=== PATIENT | female | born 1940 | race Caucasian/White ===

== ENCOUNTER → 2018-10-04 | Outpatient (CLI) | payer MEDICARE ==
--- NOTE | 2018-10-04 13:05 | US ---
EXAMINATION TYPE: US thyroid st tissue head/neck DATE OF EXAM: 10/04/2018 COMPARISON: US 2015 CLINICAL HISTORY: E04.2 Multinodular Goiter. Follow up thyroid nodules, history of thyroid biopsy, pa tient on thyroid meds. GLAND SIZE: Right Lobe: 4.8 x 1.2 x 1.5 cm Overall Parenchyma: heterogenous Left Lobe: 4.1 x 1.4 x 1.4 cm Overall Parenchyma: heterogeneous Isthmus Thickness: 0.3 cm NODULES RIGHT: # of nodules measured on right: 1 1. 1.2 X 0.9 x 1.0 cm hyperechoic solid nodule with small cystic component at the lower pole with w ell-defined margins. This nodule is wider than tall and shows intranodular vascularity. Prior size: no previous LEFT: # of nodules measured on left: 1 1. 1.5 X 1.1 x 1.2 cm hyperechoic solid nodule with small cystic component at the lower pole with w ell-defined margins. This nodule is wider than tall and shows intranodular vascularity. Prior size: 1.7 x 1.6 x 1.3 cm ISTHMUS: # of nodules measured in the isthmus: 0 Bilateral neck scanned, no evidence of lymphadenopathy. IMPRESSION: 1. New hyperechoic solid nodule right thyroid lobe with small cystic component. 2. Left thyroid nodule is slightly smaller in size.
== END | disposition home or self-care (01) ==
LOC: RADUSWWP 12:07
PROVIDERS: ATTEND Internal Medicine Endocrinology, Diabetes & Metabolism
DX: E04.2 Nontoxic multinodular goiter (principal)
CPT/HCPCS: 76536

== ENCOUNTER → 2019-09-19 | Outpatient (CLI) | payer MEDICARE ==
--- NOTE | 2019-09-19 17:21 | US ---
EXAMINATION TYPE: US thyroid st tissue head/neck DATE OF EXAM: 09/19/2019 COMPARISON: US 10/04/18 CLINICAL HISTORY: 79-year-old female E04.2 Multinodular goiter. TECHNIQUE: Multiple sonographic images of the thyroid gland are obtained. FINDINGS: GLAND SIZE: Right Lobe: 4.5 x 1.3 x 1.2 cm Overall Parenchyma: heterogenous Left Lobe: 4.3 x 1.6 x 1.4 cm Overall Parenchyma: heterogeneous Isthmus Thickness: 0.4 cm NODULES RIGHT: # of nodules measured on right: 1 1. 1.3 X 0.9 x 1.0 cm echogenic solid nodule at the lower pole with poorly defined margins. This n odule is taller than wide and shows intranodular vascularity. Prior size: 1.2 x 0.9 x 1.0 cm LEFT: # of nodules measured on left: 1 1. 1.9 X 1.5 x 1.4 cm echogenic solid nodule at the lower pole with poorly defined margins. This n odule is wider than tall and shows intranodular vascularity. Prior size: 1.5 x 1.1 x 1.2 cm ISTHMUS: # of nodules measured in the isthmus: 0 Bilateral neck scanned, no evidence of lymphadenopathy. IMPRESSION: 1. Single dominant nodule on each side. The nodule on the right is relatively stable at 1.3 x 1.0 cm. 2. The nodule on the left has slightly increased in size at 1.9 x 1.5 cm (versus 1.5 x 1.2 cm, previo usly).
== END | disposition home or self-care (01) ==
LOC: RADUSWWP 14:09
PROVIDERS: ATTEND Internal Medicine Endocrinology, Diabetes & Metabolism
DX: E04.2 Nontoxic multinodular goiter (principal)
CPT/HCPCS: 76536

== ENCOUNTER → 2020-08-30 | Day surgery (SDC) | payer MEDICARE ==
[2020-08-24 17:59] VITALS: BMI 33.8
[~2020-08-30] MED LIST: MIDAZOLAM 2 MG/2 ML VIAL IVP ONE; SODIUM CHLORIDE 0.9% 1,000 ML IV SCH; SODIUM CHLORIDE 0.9% 500 ML 500 ML IV ONE; fentaNYL (PF) 50 MCG/ML 2 ML AMP ONE
[2020-08-30 07:09] VITALS: TEMP 98.3
[2020-08-30] MEDS: BENZOCAINE SPRAY 1 CAN MUCOUS MEM ONE ×2 (07:44→07:50)
[2020-08-30] MEDS: fentaNYL (PF) 50 MCG/ML 2 ML AMP IVP ONE ×2 (07:49→07:56)
[2020-08-30 08:02] VITALS: RESP 16
--- NOTE | 2020-08-30 08:20 | P.TEE ---
Indications for Procedure(s): Assessment of aortic stenosis Date of Procedure: 08/30/20 Preoperative Diagnosis: Moderate to severe aortic stenosis Postoperative Diagnosis: Moderate to severe aortic stenosis Procedure(s) Performed: [facility] Description of Procedure(s): INDICATION: Assessment of aortic stenosis CONSENT: Verbal Informed consent was obtained from the patient PROCEDURE: Patient was brought to the lab in a fasting state. She was prepped and draped in the usual fashion. Pt throat was sprayed with Hurricaine. She was given IV Versed 2.5 mg and 37.5 g of fentanyl for sedation. A lubricated Omni probe was introduced in the oropharynx and advanced into the esophagus and stomach. Multiple views were obtained. Color and pulse and continuous-wave Doppler studies were performed. Saline contrast bubble is also performed. Patient tolerated the procedure well. No immediate complications FINDINGS:. The aortic valve appeared to be tricuspid, which is heavily calcified with restrictive opening excursion. The valve area by planimetry appear to be 0.6 2.7 cm. A peak gradient about 48 with a mean of 24 was obtained suggestive of moderate to severe aortic stenosis. There is moderate mitral regurgitation with the Pisa value of 0.7. There is no reversal of flow in the left upper pulmonary vein. There appeared to be a small PFO in the interatrial septum with a [id number] shunt. Saline contrast bubble injection did not reveal any crossing of the bubbles from right to left. Left ventricle function appeared preserved. There appeared to be left atrial enlargement. The aortic arterial free of any significant plaque IMPRESSION: #1. Moderate to severe aortic stenosis. #2. Moderate mitral regurgitation. #3. Left atrial enlargement. #4. Presence of PFO #5. Preserved LV function. #6. Minimal plaque in the aorta PLAN: Continue to monitor her clinically. Possible aortic valve replacement in the near future
[2020-08-30 10:48] VITALS: BP 106/59; PULSE 58
== END | disposition home or self-care (01) ==
LOC: CATHCVL 06:25
PROVIDERS: ATTEND Internal Medicine Cardiovascular Disease
DX: I08.0 Rheumatic disorders of both mitral and aortic valves (principal); Q21.1 Atrial septal defect; I70.0 Atherosclerosis of aorta; E78.2 Mixed hyperlipidemia; I49.9 Cardiac arrhythmia, unspecified; I10 Essential (primary) hypertension; H93.13 Tinnitus, bilateral; Z72.0 Tobacco use; Z79.899 Other long term (current) drug therapy; Z79.82 Long term (current) use of aspirin; Z88.1 Allergy status to other antibiotic agents; Z88.2 Allergy status to sulfonamides; Z82.49 Family history of ischemic heart disease and other diseases of the circulatory system
CPT/HCPCS: 93312; 93320; 93325; J2250; J3010

== ENCOUNTER → 2020-12-24 | Outpatient (CLI) | payer MEDICARE ==
--- NOTE | 2020-12-24 16:04 | US ---
EXAMINATION TYPE: US thyroid st tissue head/neck DATE OF EXAM: 12/24/2020 COMPARISON: 09/19/2019 CLINICAL HISTORY: 80-year-old female E04.2 Nontoxic Multinodular Goiter. Takes thyroid medication TECHNIQUE: Multiple sonographic images of the thyroid gland are obtained. FINDINGS: GLAND SIZE: Right Lobe: 4.6 x 1.7x 1.2 cm Overall Parenchyma: heterogenous Left Lobe: 4.6 x 1.6 x 1.4 cm Overall Parenchyma: heterogeneous Isthmus Thickness: 0.3 cm NODULES RIGHT: # of nodules measured on right: 2 1. 1.2 X 1.0 x 0.8 cm mixed cystic and solid, hyperechoic nodule in inferior pole, which is wider th an tall, with ill-defined margins, without echogenic foci. Prior size: 1.3 x 0.9 x 1.0 cm 2. 0.5 X 0.3 x 0.4 cm benign cyst at the midpole Prior size: not seen LEFT: # of nodules measured on left: 2 1. 1.8 X 1.4 x 1.3 cm mixed cystic and solid, primarily solid isoechoic nodule at the lower pole, w hich is wider than tall, with slightly lobulated margins, without echogenic foci. Prior size: 1.9 x 1.5 x 1.4 cm 2. 0.6 X 0.7 x 0.6 cm cyst with a 3 mm mural based nodule. This is wider than tall, with smooth mar gins, without echogenic foci. Prior size: not seen ISTHMUS: # of nodules measured in the isthmus: 0 Bilateral neck scanned: no evidence of lymphadenopathy. IMPRESSION: 1. Findings suggest multinodular goiter. 2. Dominant solid cystic nodule on the right measures 1.2 cm, not significantly changed from 2019. 3. A dominant 1.8 cm primarily solid nodule on the left is also not significantly changed. 4. A small 7 mm cyst with a 3 mm internal nodule is not clearly seen previously. Follow-up can be con sidered.
== END | disposition home or self-care (01) ==
LOC: RADUSWWP 13:38
PROVIDERS: ATTEND Internal Medicine Endocrinology, Diabetes & Metabolism
DX: E04.2 Nontoxic multinodular goiter (principal)
CPT/HCPCS: 76536

== ENCOUNTER 2021-07-25 06:15 | Day surgery (SDC) | payer MEDICARE ==
[2021-07-22 11:43] VITALS: BMI 33.4
[2021-07-25] MEDS ORDERED: NITROGLYCERIN SL TABS 0.4 MG TAB SUBLINGUAL PRN (06:23)
[2021-07-25] MEDS ORDERED: ALPRAZolam 0.25 MG TAB PO PRN (06:23)
[2021-07-25] MEDS ORDERED: ATORVASTATIN 80 MG TAB PO STA (06:23)
[2021-07-25] MEDS ORDERED: SODIUM CHLORIDE 0.9% 1,000 ML in EMPTY BAG 1 BAG IV ONE (06:23)
[2021-07-25] MEDS ORDERED: ASPIRIN 325 MG TAB PO STA (06:23)
[2021-07-25] MEDS ORDERED: ALPRAZolam 0.5 MG TAB PO PRN (06:23)
[2021-07-25 07:00] VITALS: RESP 16; TEMP 98.1
[2021-07-25] MEDS ORDERED: fentaNYL (PF) 50 MCG/ML 2 ML AMP ONE (07:35)
[2021-07-25] MEDS ORDERED: fentaNYL (PF) 50 MCG/ML 2 ML AMP IV ONE (07:50)
[2021-07-25] MEDS ORDERED: MIDAZOLAM 2 MG/2 ML VIAL IV ONE (07:50)
[2021-07-25] MEDS ORDERED: LIDOCAINE 1% INJ 10MG/ML (20 ML MDV) SQ ONE (07:54)
[2021-07-25] MEDS ORDERED: IOPAMIDOL-370 125ML BTL INJ ONE (08:19)
[2021-07-25 08:21] LABS: O2 Sat Blood Gas 95.1 %
[2021-07-25 08:24] LABS: O2 Sat Blood Gas 74.2 %
[2021-07-25 08:26] LABS: O2 Sat Blood Gas 74.5 %
[2021-07-25] MEDS ORDERED: RX INFO: IV CONTRAST WAS GIVEN 1 EACH MISC MISCELLANE PRN (09:03)
--- NOTE | 2021-07-25 09:11 | P.CARDCATH ---
Date of Procedure: 07/25/21 Preoperative Diagnosis: Aortic stenosis, critical Postoperative Diagnosis: Moderate to severe aortic stenosis Procedure(s) Performed: Left heart catheterization, selective coronary arteriography and right heart catheterization. No LV gram Description of Procedure: HISTORY: This is a 81-year-old female with history of nontraumatic aortic stenosis. Recent echocardiogram was size to of severe aortic stenosis. Patient doesn't have any symptoms of chest pain, shortness of breath, dizziness or syncope. She had a previous a [facility] examination which was suggestive of moderate to severe aortic stenosis. Patient is advised to have a cardiac catheterization for definitive diagnosis and further intervention as needed CONSENT:I have discussed the risks, benefits and alternative therapies for the above-mentioned procedure and for both sedation/analgesia as well as necessary blood product administration, if indicated, as they pertain to this patient. The patient has indicated understanding and acceptance of the risks and proc edures discussed. PROCEDURE: Patient was brought to the lab in a fasting state. Patient was given some IV sedation. Right heart catheterization: This was done from the right femoral approach. The right groin is infiltrated with lidocaine. Right femoral vein was entered and the 8-Somali sheath was left in place. The right groin is infiltrated with lidocaine and right femoral artery was entered using Seldinger technique. A 7- Somali [place]ingham-Umm catheter was advanced through the sheath and right heart catheterization was performed. Patient tolerated the procedure well. Manual compression was applied for hemostasis at the end of the procedure. Left heart catheterization: The right femoral artery was entered using Seldinger technique. A 6-Somali catheter was left in place and selective coronary arteriography and left ventriculography was performed. Patient tolerated the procedure well. Femoral angiogram was performed and Angio-Seal was applied for hemostasis. No immediate complications were noted and patient was transferred to [facility] in a stable condition Conscious Sedation: Versed 1mg Fentanyl 50 g Duration 31minutes HEMODYNAMICS: The aortic pressure is about 110/70. The left ventricle end- diastolic pressure 8-10. The right atrial pressure was 3. Right ventricular pressure was 25 over 3. Pulmonary artery pressure was 25/8. Pulmonary wedge pressure was 8. The cardiac output by thermodilution method was 4.86 and by Alyssa method is 6.99. A peak gradient of 30 was obtained across the aortic valve with a mean of about 25. The valve area is about 1-1.2. SELECTIVE CORONARY ARTERIOGRAPHY: LEFT MAIN: Normal length and free of occlusive disease THE LEFT ANTERIOR DESCENDING CORONARY ARTERY:. Fairly caliber vessel free of any occlusive disease. Gives rise to good-sized 2 diagonal branches and septal branches which are free of occlusive disease THE LEFT CIRCUMFLEX AND IS CORONARY ARTERY:. This is a good caliber vessel giving rise to good-sized OM branch and PLV branch. Free of occlusive disease THE RIGHT CORONARY ARTERY:. Dominant vessel giving rise to good-sized PDA and PLV. Free of occlusive disease LEFT VENTRICULOGRAPHY:. Not performed FINAL IMPRESSION:. Noncritical aortic stenosis. Normal coronary arteries PLAN:. Continue medical therapy and monitor with serial echocardiogram PROGNOSIS: Fair
[2021-07-25] MEDS ORDERED: SODIUM CHLORIDE 0.9% 1,000 ML IV SCH (09:15)
[2021-07-25 10:52] VITALS: BP 124/84; PULSE 60
== END 2021-07-25 12:50 | disposition home or self-care (01) ==
LOC: CATHCVL 06:15
PROVIDERS: ATTEND Internal Medicine Cardiovascular Disease
DX: I35.0 Nonrheumatic aortic (valve) stenosis (principal); I10 Essential (primary) hypertension; E78.5 Hyperlipidemia, unspecified; F17.210 Nicotine dependence, cigarettes, uncomplicated; Z79.82 Long term (current) use of aspirin; Z82.49 Family history of ischemic heart disease and other diseases of the circulatory system
CPT/HCPCS: 93460; 85018; 82810; C1760; C1769 ×3; C1894 ×2; J2250; J2001; J3010; Q9967

== ENCOUNTER 2022-01-16 04:31 | Emergency (ER) | payer MEDICARE ==
[2022-01-16 05:04] VITALS: BP 156/72; TEMP 98
--- NOTE | 2022-01-16 05:16 | ED ---
SOB HPI - General Chief Complaint: Shortness of Breath Stated Complaint: SOB, chest pain Time Seen by Provider: 01/16/22 05:02 Source: patient Mode of arrival: EMS Limitations: no limitations - History of Present Illness Initial Comments: This patient is a 81-year-old woman who presents with complaint that she feels unable to draw a "satisfying breath." This it come on tonight. She states that there is a feeling that it is tight in the lower chest bilaterally. She did not have fever or chills, cough, diaphoresis or other symptoms. MD Complaint: shortness of breath -: hour(s) Severity scale (1-10): 0 Consistency: constant Improves With: nothing Worsens With: nothing Associated Symptoms: denies other symptoms - Related Data Home Medications Medication Instructions Recorded Confirmed Aspirin 81 mg PO HS 06/15/14 01/16/22 Atorvastatin [Lipitor] 10 mg PO HS 06/15/14 01/16/22 gemfibroziL [Lopid] 600 mg PO DAILY 06/15/14 01/16/22 Albuterol Inhaler [Ventolin Hfa 2 puff INHALATION RT-Q6H PRN 08/24/20 01/16/22 Inhaler] Calcium Carbonate [Calcium] 600 mg PO DAILY 08/24/20 01/16/22 Cholecalciferol [Vitamin D3 (25 1,000 unit PO DAILY 08/24/20 01/16/22 Mcg = 1000 Iu)] Losartan [Cozaar] 50 mg PO DAILY 08/24/20 01/16/22 Perry-3 Fatty Acids/Fish Oil [Fish 1 cap PO DAILY 08/24/20 01/16/22 Oil 1,000 mg Softgel] hydroCHLOROthiazide 25 mg PO DAILY 08/24/20 01/16/22 methIMAzole [Tapazole] 2.5 mg PO HS 08/24/20 01/16/22 Vit C/E/Zn/Coppr/Lutein/Zeaxan 1 cap PO DAILY 07/22/21 01/16/22 [Preservision Areds 2 Softgel] Aspirin EC [Ecotrin] 325 mg SL ONCE PRN 01/16/22 01/16/22 Allergies Allergy/AdvReac Type Severity Reaction Status Date / Time cephalexin monohydrate Allergy Rash/Hives Verified 01/16/22 06:24 [From Keflex] Sulfa (Sulfonamide Allergy Rash/Hives Verified 01/16/22 06:24 Antibiotics) Review of Systems ROS Statement: Those systems with pertinent positive or pertinent negative responses have been documented in the HPI. ROS Other: All systems not noted in ROS Statement are negative. Constitutional: Denies: fever, chills, weakness Respiratory: Reports: as per HPI, dyspnea. Denies: cough, wheezes, hemoptysis Cardiovascular: Denies: chest pain, palpitations, orthopnea, edema, syncope Gastrointestinal: Denies: abdominal pain, vomiting, diarrhea, melena, hematochezia Genitourinary: Denies: dysuria, hematuria Musculoskeletal: Denies: back pain Skin: Denies: rash Neurological: Denies: headache Past Medical History Past Medical History: Cancer, Hyperlipidemia, Hypertension, Skin Disorder, Thyroid Disorder Additional Past Medical History / Comment(s): HX SKIN CANCER DX, see Dr Harris H&P, "indigestion", "patch on scalp", hyperthyroid, History of Any Multi-Drug Resistant Organisms: None Reported Past Surgical History: Tonsillectomy, Tubal Ligation Additional Past Surgical History / Comment(s): MULT SKIN CANCER LESIONS REMOVED, BILAT CATARACTS REMOVED Past Anesthesia/Blood Transfusion Reactions: No Reported Reaction Past Psychological History: No Psychological Hx Reported Smoking Status: Former smoker - Past Family History Mother Family Medical History: Cancer Additional Family Medical History / Comment(s): breast cancer Father Family Medical History: Cancer General Exam Limitations: no limitations General appearance: alert, in no apparent distress Head exam: Present: atraumatic, normocephalic Eye exam: Present: normal appearance. Absent: scleral icterus, conjunctival injection ENT exam: Present: normal oropharynx Neck exam: Present: normal inspection Respiratory exam: Present: normal lung sounds bilaterally. Absent: respiratory distress, wheezes, rales, rhonchi, stridor, chest wall tenderness, accessory muscle use Cardiovascular Exam: Present: regular rate, normal rhythm, systolic murmur (Grade 3/6 systolic ejection murmur). Absent: diastolic murmur, rubs, gallop GI/Abdominal exam: Present: soft. Absent: distended, tenderness, guarding, rebound, rigid, mass Extremities exam: Present: normal inspection, normal capillary refill. Absent: pedal edema, calf tenderness Back exam: Present: normal inspection. Absent: CVA tenderness (R), CVA tenderness (L) Neurological exam: Present: alert Skin exam: Present: warm, dry, intact, normal color. Absent: rash Course Vital Signs 01/16/22 04:55 Temperature 98 F Pulse Rate 80 Respiratory 19 Rate Blood Pressure 156/72 O2 Sat by Pulse 98 Oximetry Medical Decision Making - Lab Data Result diagrams: 01/16/22 05:16 01/16/22 05:16 Lab Results 01/16/22 01/16/22 01/16/22 Range/Units 05:16 05:16 05:16 WBC 11.8 H (3.8-10.6) k/uL RBC 4.30 (3.80-5.40) m/uL Hgb 12.8 (11.4-16.0) gm/dL Hct 37.5 (34.0-46.0) % MCV 87.2 (80.0-100.0) fL MCH 29.8 (25.0-35.0) pg MCHC 34.1 (31.0-37.0) g/dL RDW 13.6 (11.5-15.5) % Plt Count 317 (150-450) k/uL MPV 8.0 Neutrophils % 81 % Lymphocytes % 10 % Monocytes % 5 % Eosinophils % 1 % Basophils % 0 % Neutrophils # 9.6 H (1.3-7.7) k/uL Lymphocytes # 1.2 (1.0-4.8) k/uL Monocytes # 0.6 (0-1.0) k/uL Eosinophils # 0.2 (0-0.7) k/uL Basophils # 0.0 (0-0.2) k/uL PT 10.5 (9.0-12.0) sec INR 1.0 (<1.2) APTT 22.9 (22.0-30.0) sec D-Dimer 0.71 H (<0.60) mg/L FEU Sodium 131 L (137-145) mmol/L Potassium 3.6 (3.5-5.1) mmol/L Chloride 98 (98-107) mmol/L Carbon Dioxide 23 (22-30) mmol/L Anion Gap 10 mmol/L BUN 14 (7-17) mg/dL Creatinine 0.48 L (0.52-1.04) mg/dL Est GFR (CKD-EPI)AfAm >90 (>60 ml/min/1.73 sqM) Est GFR (CKD-EPI)NonAf >90 (>60 ml/min/1.73 sqM) Glucose 153 H (74-99) mg/dL Plasma Lactic Acid Martir (0.7-2.0) mmol/L Calcium 9.3 (8.4-10.2) mg/dL Total Bilirubin 1.4 H (0.2-1.3) mg/dL AST 60 H (14-36) U/L ALT 70 H (4-34) U/L Alkaline Phosphatase 188 H (38-126) U/L Troponin I (0.000-0.034) ng/mL NT-Pro-B Natriuret Pep pg/mL Total Protein 6.7 (6.3-8.2) g/dL Albumin 3.7 (3.5-5.0) g/dL 01/16/22 01/16/22 01/16/22 Range/Units 05:16 05:16 05:37 WBC (3.8-10.6) k/uL RBC (3.80-5.40) m/uL Hgb (11.4-16.0) gm/dL Hct (34.0-46.0) % MCV (80.0-100.0) fL MCH (25.0-35.0) pg MCHC (31.0-37.0) g/dL RDW (11.5-15.5) % Plt Count (150-450) k/uL MPV Neutrophils % % Lymphocytes % % Monocytes % % Eosinophils % % Basophils % % Neutrophils # (1.3-7.7) k/uL Lymphocytes # (1.0-4.8) k/uL Monocytes # (0-1.0) k/uL Eosinophils # (0-0.7) k/uL Basophils # (0-0.2) k/uL PT (9.0-12.0) sec INR (<1.2) APTT (22.0-30.0) sec D-Dimer (<0.60) mg/L FEU Sodium (137-145) mmol/L Potassium (3.5-5.1) mmol/L Chloride (98-107) mmol/L Carbon Dioxide (22-30) mmol/L Anion Gap mmol/L BUN (7-17) mg/dL Creatinine (0.52-1.04) mg/dL Est GFR (CKD-EPI)AfAm (>60 ml/min/1.73 sqM) Est GFR (CKD-EPI)NonAf (>60 ml/min/1.73 sqM) Glucose (74-99) mg/dL Plasma Lactic Acid Martir 1.3 (0.7-2.0) mmol/L Calcium (8.4-10.2) mg/dL Total Bilirubin (0.2-1.3) mg/dL AST (14-36) U/L ALT (4-34) U/L Alkaline Phosphatase (38-126) U/L Troponin I <0.012 (0.000-0.034) ng/mL NT-Pro-B Natriuret Pep 148 pg/mL Total Protein (6.3-8.2) g/dL Albumin (3.5-5.0) g/dL - EKG Data -: EKG Interpreted by Me EKG shows normal: sinus rhythm, axis, intervals (Normal), QRS complexes (Possible old inferior infarct.), ST-T waves (Normal) Rate: normal (Rate 74 bpm) Interpretation: LVH (By voltage criteria) Disposition Clinical Impression: Dyspnea Disposition: HOME SELF-CARE Condition: Good Instructions (If sedation given, give patient instructions): Dyspnea (ED) Is patient prescribed a controlled substance at d/c from ED?: No Referrals: Ashley Navarrete MD [Primary Care Provider] - 1-2 days
[2022-01-16 05:25] LABS: Basophils % (A) 0 %; Eosinophils # (A) 0.2 k/uL (0-0.7); Eosinophils % (A) 1 %; HCT 37.5 % (34.0-46.0); HGB 12.8 gm/dL (11.4-16.0); Lymphocytes # (A) 1.2 k/uL (1.0-4.8); Lymphocytes % (A) 10 %; MCH 29.8 pg (25.0-35.0); MCHC 34.1 g/dL (31.0-37.0); MCV 87.2 fL (80.0-100.0); Monocytes # (A) 0.6 k/uL (0-1.0); Monocytes % (A) 5 %; Neutrophils # (A) 9.6 k/uL (1.3-7.7); Neutrophils % (A) 81 %; Platelet Count 317 k/uL (150-450); RDW 13.6 % (11.5-15.5); WBC 11.8 k/uL (3.8-10.6)
[2022-01-16 05:37] LABS: ALT 70 U/L (4-34); AST 60 U/L (14-36); African American GFR (CKD) >90 (>60 ml/min/1.73 sqM); Albumin 3.7 g/dL (3.5-5.0); Alkaline Phosphatase 188 U/L (38-126); Anion Gap 10 mmol/L; Blood Urea Nitrogen 14 mg/dL (7-17); Calcium 9.3 mg/dL (8.4-10.2); Carbon Dioxide 23 mmol/L (22-30); Chloride 98 mmol/L (98-107); Glucose 153 mg/dL (74-99); Non-African American GFR(CKD) >90 (>60 ml/min/1.73 sqM); Potassium 3.6 mmol/L (3.5-5.1); Sodium 131 mmol/L (137-145); Total Bilirubin 1.4 mg/dL (0.2-1.3); Total Protein 6.7 g/dL (6.3-8.2)
[2022-01-16 05:42] LABS: Partial Thromboplastin Time 22.9 sec (22.0-30.0); Prothrombin Time 10.5 sec (9.0-12.0)
--- NOTE | 2022-01-16 05:48 | XR ---
EXAMINATION TYPE: XR chest 2V DATE OF EXAM: 01/16/2022 COMPARISON: NONE HISTORY: Short of breath TECHNIQUE: 2 view FINDINGS: Heart is enlarged. There is no heart failure. Lungs are clear of consolidation. There are n o hilar masses. There are chest leads. IMPRESSION: No active cardiopulmonary disease.
[2022-01-16] MEDS ORDERED: ALBUTEROL NEBULIZED 2.5 MG/3 ML INHALATION STA (07:15)
[2022-01-16 08:11] VITALS: RESP 16
[2022-01-16 08:23] VITALS: PULSE 72
== END 2022-01-16 08:23 | disposition home or self-care (01) ==
LOC: EC 04:31
DX: R06.02 Shortness of breath (principal); E78.5 Hyperlipidemia, unspecified; I10 Essential (primary) hypertension; E07.9 Disorder of thyroid, unspecified; Z79.82 Long term (current) use of aspirin; Z88.2 Allergy status to sulfonamides; Z85.828 Personal history of other malignant neoplasm of skin; Z98.51 Tubal ligation status; Z87.891 Personal history of nicotine dependence
CPT/HCPCS: 36415; 71046; 80053; 83605; 83880; 84484; 85025; 85379; 85610; 85730; 93005; 94640; 99285

== ENCOUNTER → 2022-04-02 | Outpatient (CLI) | payer MEDICARE ==
--- NOTE | 2022-04-02 19:39 | US ---
EXAMINATION TYPE: US thyroid st tissue head/neck DATE OF EXAM: 04/02/2022 COMPARISON: US CLINICAL HISTORY: E04.2 goiter. Hx biopsy a few years ago. Goiter. GLAND SIZE: Right Lobe: 4.5 x 1.8 x 1.4 cm Overall Parenchyma: heterogenous Left Lobe: 4.9 x 1.8 x 1.6 cm Overall Parenchyma: heterogeneous Isthmus Thickness: 0.29 cm NODULES RIGHT: # of nodules measured on right: 4 1. 0.5 X 0.4 x 0.5 cm, mid lateral, mixed cystic and solid, hypoechoic nodule, which is taller than wide, with smooth margins, with echogenic focus. Prior size: 0.5 x 0.3 x 0.4 cm 2. ??Nodule versus possible parathyroid tissue 1.0 X 0.5 x 0.4 cm, mid lateral, hypoechoic nodule, which is wider than tall, with ill-defined margins, without echogenic foci. Prior size: Does not correlate 3. 1.5 X 1.4 x 0.9 cm, lower medial, mixed cystic and solid, isoechoic nodule, which is wider than tall, with smooth margins, with echogenic foci. TR 4 Prior size: 1.2 x 1.0 x 0.8 cm *hypoechoic borders. 4. 0.6 X 0.5 x 0.3 cm, mid mid, hypoechoic nodule, which is wider than tall, with smooth margins, w ith echogenic focus. Prior size: Does not correlate LEFT: # of nodules measured on left: 2 1. 2.3 X 1.6 x 1.3 cm, lower lateral, mixed cystic and solid, isoechoic nodule, which is wider than tall, with ill-defined margins, with echogenic foci. TR 2 Prior size: 1.8 x 1.4 x 1.3 cm 2. 0.8 X 0.7 x 0.5 cm, upper mid, solid or almost completely solid, isoechoic nodule, which is wid er than tall, with ill-defined margins, without echogenic foci. Prior size: Does not correlate ISTHMUS: # of nodules measured in the isthmus: 0 Bilateral neck scanned, no evidence of lymphadenopathy. IMPRESSION: 1. Mildly suspicious nodule right lobe thyroid. This has increased in size from the comparison. If th is is not been biopsied, fine-needle aspiration would be recommended. 2017 ACR TI-RADS LEVEL: TR-RADS 4 - Moderately Suspicious: Follow if > 1 cm, FNA if > 1.5 cm *Highest TI-RADS level nodule reported
== END | disposition home or self-care (01) ==
LOC: RADUSWWP 13:26
PROVIDERS: ATTEND Internal Medicine Endocrinology, Diabetes & Metabolism
DX: E04.2 Nontoxic multinodular goiter (principal)
CPT/HCPCS: 76536

== ENCOUNTER 2022-09-09 12:49 | Day surgery (SDC) | payer MEDICARE ==
[2022-09-09 13:29] VITALS: TEMP 98
--- NOTE | 2022-09-09 14:20 | US ---
ULTRASOUND GUIDED FNA THYROID BIOPSY: CLINICAL HISTORY: Right thyroid nodule FINDINGS: The procedure was explained to the patient. The risks, complications, benefits and alternatives were discussed and any questions were answered. Informed consent was obtained. Patient was placed supin e on the ultrasound table and prepped and draped in the usual sterile fashion. Utilizing a 25 gauge needle, five passes were made into the requested right thyroid nodule. Patient was stable throughout the procedure. Pathology is pending. All elements of maximal barrier technique were utilized. IMPRESSION: 1. Successful ultrasound guided FNA thyroid biopsy.
[2022-09-09 14:31] VITALS: BP 147/79; PULSE 94; RESP 16
== END 2022-09-09 14:25 | disposition home or self-care (01) ==
LOC: RADPROMAIN 12:49
PROVIDERS: ATTEND Internal Medicine Endocrinology, Diabetes & Metabolism
DX: E04.1 Nontoxic single thyroid nodule (principal)
CPT/HCPCS: 10005; 88173; 88305

== ENCOUNTER → 2023-08-13 | Outpatient (CLI) | payer MEDICARE ==
--- NOTE | 2023-08-13 19:41 | US ---
EXAMINATION TYPE: US thyroid st tissue head/neck DATE OF EXAM: 08/13/2023 COMPARISON: US 2021 CLINICAL INDICATION: Female, 83 years old with history of E04.2 nontoxic multinodular goiter; GLAND SIZE: Right Lobe: 4.9 x 1.3 x 1.9 cm Overall Parenchyma: heterogenous Left Lobe: 4.3 x 1.5 x 1.8 cm Overall Parenchyma: heterogenous Isthmus Thickness: 0.3 cm NODULES RIGHT: # of nodules measured on right: 1 1. 1.2 X 0.9 x 1.1 cm, lower mid, solid or almost completely solid, isoechoic TR 3 nodule, which is wider than tall, with ill-defined margins, without echogenic foci. Prior size: 1.5 x 0.9 x 1.4 cm LEFT: # of nodules measured on left: 1 1. 1.5 X 1.0 x 1.3 cm, mid, solid or almost completely solid, isoechoic TR 3 nodule, which is wider than tall, with ill-defined margins, without echogenic foci. Prior size: 2.3 x 1.3 x 1.6 cm ISTHMUS: # of nodules measured in the isthmus: 0 Bilateral neck scanned, no evidence of lymphadenopathy. IMPRESSION: A TR 3 nodule on either side decreasing in size from prior exam, now measuring up to 1.5 cm on the le ft and 1.2 cm on the right.
== END | disposition home or self-care (01) ==
LOC: RADUSWWP 14:46
PROVIDERS: ATTEND Internal Medicine Endocrinology, Diabetes & Metabolism
DX: E04.2 Nontoxic multinodular goiter (principal)
CPT/HCPCS: 76536

== ENCOUNTER → 2024-07-08 | Outpatient (CLI) | payer MEDICARE | END | disposition home or self-care (01) | LOC: LABPRL 11:35 | PROVIDERS: ATTEND Internal Medicine Interventional Cardiology | CPT/HCPCS: 80048; 83880 ==

== ENCOUNTER 2024-07-21 08:29 | Day surgery (SDC) | payer MEDICARE ==
[2024-07-01] MEDS: IOPAMIDOL-370 100ML BTL INJ ONE (11:39)
[2024-07-21] MEDS ORDERED: LIDOCAINE 1% INJ 10MG/ML (20 ML MDV) ONE (09:10)
[2024-07-21] MEDS ORDERED: VERAPAMIL 2.5 MG/ML 2 ML AMP ONE (09:10)
[2024-07-21] MEDS ORDERED: fentaNYL (PF) 50 MCG/ML 2 ML AMP ONE (10:02)
[2024-07-21] MEDS ORDERED: HEPARIN SODIUM 1,000 UN/ML (10ML VL) ONE (10:03)
[2024-07-21] MEDS ORDERED: MIDAZOLAM 2 MG/2 ML VIAL ONE (10:03)
[2024-07-21] MEDS ORDERED: BENZOCAINE SPRAY 1 EACH MM ONE (10:15)
[2024-07-21] MEDS ORDERED: SODIUM CHLORIDE 0.9% 1,000 ML BAG ONE ×2 (10:15→10:40)
[2024-07-21] MEDS ORDERED: SODIUM CHLORIDE 0.9% 250 ML BAG ONE (10:40)
[2024-07-21] MEDS ORDERED: HEPARIN SODIUM,PORCINE 5,000 UNIT/ML 1 ML VIAL ONE (10:40)
[2024-07-21] MEDS ORDERED: HEPARIN SODIUM,PORCINE 10,000 UNIT/ML 1 ML VIAL ONE (10:40)
--- NOTE | 2024-08-26 09:46 | CC ---
CARDIAC CATHETERIZATION REPORT Ms. Mclain is an 84-year-old female with a known history of hypertension, hyperlipidemia as well as history of aortic stenosis, who had evidence of progression of gradient, and she has been complaining of progressive dyspnea. In view of that, recommendation was made regarding cardiac catheterization. The procedure as well as risks and complications were discussed with the patient, who is in full understanding and agreement. PROCEDURE DESCRIPTION: The patient was brought to cath lab technologist in a fasting, semi-sedated state. After receiving fentanyl and Benadryl and achieving moderate conscious sedated state, a 6-Fijian sheath was introduced in the right radial artery. Subsequently, the venous sheath and the right basilic vein were exchanged to a 6-Fijian sheath. Right heart catheterization was performed using [place]-Umm catheter. Multiple samples were obtained. Cardiac output by thermodilution was calculated. Selective right and left coronary angiography was performed using 5-Fijian 3.5 bend right Karma and a 4 bend left Karma catheter. Multiple views of the coronary artery including jake-axial views were obtained. The right Karma was used to cross the aortic valve, and pressures were obtained. Following that, catheter and sheath were removed. Hemostasis was obtained with deployment of a TR band. There was no hand compression of the right brachial area. There was no immediate complication. The patient was returned to room in stable condition. Of note, the patient received 4500 units of intravenous heparin as well as intra-arterial verapamil. HEMODYNAMICS: Right atrial saturation 71%, pulmonary artery saturation 74%, arterial saturation 99%. Cardiac output by Alyssa 5.0 L/minute with an index of 2.9 L/minute per sq m. Cardiac output by thermodilution of 4.6 L/minute with an index of 2.7 L/minute per sq m. Left ventricular end-diastolic pressure of 14 to 16 mmHg. Pulmonary artery systolic of 30, diastolic of 8 with a mean of 18 mmHg. Pulmonary capillary wedge pressure: A-wave of 18, V-wave of 20 with a mean of 12 mmHg. Right ventricular systolic of 30 with an end- diastolic of 9 mmHg. Right atrium: A-wave of 7, V-wave of 5 with a mean of 5 mmHg. Left ventricular systolic pressure of 185 mmHg with an ascending aorta of 125 mmHg with a peak gradient of 60 mmHg and aortic valve area measured at 0.6 sq cm. CORONARIES: Left main: This is a large-sized vessel bifurcating into left circumflex, left anterior descending artery. Left main coronary artery has no evidence of significant obstructive disease. Left anterior descending artery: This is a large-sized vessel reaching to the apex giving rise to a diagonal branch. The left anterior descending artery as well as branches have no evidence of obstructive coronary disease. The first septal distributor sales consultant is large in caliber and is parallel to the LAD in segment of it. Left circumflex: This is a large nondominant vessel giving rise to 2 large obtuse marginal branches that have no obstructive disease. Right coronary artery: This is a large dominant vessel bifurcating distally to PDA and posterolateral segment branches. The right coronary artery and its branches have no evidence of obstructive coronary artery disease. Fluoroscopy: There is severe calcification of the aortic valve as well as severe mitral anulus calcification. CONCLUSION: 1. Normal coronary arteries. 2. Severe aortic stenosis with a valve area 0.6 sq cm. 3. Right dominance. 4. Severe mitral anulus calcification. RECOMMENDATIONS: In view of findings and anatomy, I recommend proceeding with evaluation for aortic valve replacement by TAVR. Those findings and recommendations were discussed with the patient and her family, and they are in full understanding and agreement. Duration of sedation is 54 minutes. MMODL / IJN: [id number] /
--- NOTE | 2024-08-26 09:49 | ECHOT ---
TRANSESOPHAGEAL ECHOCARDIOGRAM INDICATION: Evaluation of aortic graft. PROCEDURE: After explaining the procedure to the patient, its risks and the complications, her blood pressure, heart rate, O2 saturation were monitored. The throat was sprayed with Cetacaine. She received 2 mg of intravenous Versed and 50 mcg intravenous fentanyl. The probe was introduced in esophagus without difficulties. Images were obtained. Following that, the probe was removed. There was no immediate complication. FINDINGS: Left atrial size is upper size of normal. Left atrial appendage is normal. Left ventricular size and systolic function normal. The mitral valve revealed mitral anulus calcification. The tricuspid valve appears to be normal. Pulmonic valve is normal. The aortic valve is a tricuspid valve with severe calcification and reduced opening. Descending thoracic aorta appears to be normal. No pericardial effusion was noted. Contrast bubble study revealed no shunting across the interatrial septum. Doppler pulse wave and color Doppler obtained and revealed a moderate mitral and tricuspid regurgitation with mild pulmonary hypertension. There was mild aortic regurgitation. The peak gradient across the aortic valve was 71 mmHg with a mean of 35 mmHg. There was no shunting by color Doppler study. CONCLUSION: 1. Normal left ventricular size and systolic function. 2. Severe aortic stenosis with a mean gradient of 35 mmHg and mild aortic regurgitation. 3. Moderate mitral and tricuspid regurgitation with mild pulmonary hypertension. 4. No pericardial effusion. 5. No shunting across the interatrial septum. MMODL / IJN: [id number] /
== END 2024-07-21 15:34 | disposition home or self-care (01) ==
LOC: CATHCVL 08:29
PROVIDERS: ATTEND Internal Medicine Interventional Cardiology
DX: R94.39 Abnormal result of other cardiovascular function study
CPT/HCPCS: 93312; 93320; 93325; 93460

== ENCOUNTER → 2024-08-04 | Outpatient (CLI) | payer MEDICARE ==
[2024-08-04 09:50] LABS: Basophils # (A) 0.1 k/uL (0-0.2); Basophils % (A) 1 %; Eosinophils # (A) 0.3 k/uL (0-0.7); Eosinophils % (A) 6 %; HCT 41.5 % (34.0-46.0); HGB 13.9 gm/dL (11.4-16.0); Lymphocytes # (A) 1.6 k/uL (1.0-4.8); Lymphocytes % (A) 28 %; MCH 29.4 pg (25.0-35.0); MCHC 33.4 g/dL (31.0-37.0); Monocytes # (A) 0.3 k/uL (0-1.0); Monocytes % (A) 5 %; Neutrophils # (A) 3.3 k/uL (1.3-7.7); Neutrophils % (A) 58 %; Platelet Count 302 k/uL (150-450); RBC 4.72 m/uL (3.80-5.40); RDW 13.3 % (11.5-15.5); WBC 5.6 k/uL (3.8-10.6)
[2024-08-04 09:51] LABS: Appearance,Urine Clear (Clear); Bilirubin,Urine Negative (Negative); Blood,Urine Negative (Negative); Color,Urine Colorless; Glucose,Urine (UA) Negative (Negative); Ketones,Urine Negative (Negative); Leukocyte Esterase,Urine Negative (Negative); Nitrite,Urine Negative (Negative); PH, Urine 6.5 (5.0-8.0); Protein,Urine Negative (Negative); Specific Gravity,Urine 1.015 (1.001-1.035); Urobilinogen,Urine <2.0 mg/dL (<2.0)
[2024-08-04 10:14] LABS: ALT 16 U/L (4-34); AST 25 U/L (14-36); African American GFR (CKD) >90 (>60 ml/min/1.73 sqM); Albumin 4.5 g/dL (3.5-5.0); Albumin/Globulin Ratio 1.7; Alkaline Phosphatase 89 U/L (38-126); Anion Gap 6 mmol/L; Bilirubin,Unconjugated 0.7 mg/dL (0.0-1.1); Blood Urea Nitrogen 12 mg/dL (7-17); Calcium 9.7 mg/dL (8.4-10.2); Carbon Dioxide 29 mmol/L (22-30); Chloride 98 mmol/L (98-107); Globulin 2.7 g/dL; Glucose 102 mg/dL (74-99); Magnesium 1.9 mg/dL (1.6-2.3); Non-African American GFR(CKD) 88 (>60 ml/min/1.73 sqM); Sodium 133 mmol/L (137-145); Total Bilirubin 0.8 mg/dL (0.2-1.3); Total Protein 7.2 g/dL (6.3-8.2)
[2024-08-04 10:21] LABS: NT-Pro-B-Type Natriuretic Pept 384 pg/mL
--- NOTE | 2024-08-04 12:19 | CT ---
EXAMINATION TYPE: CT TAVR Planning DATE OF EXAM: 08/04/2024 HISTORY: Pre TAVR CT DLP: 2144.9 mGycm Automated Exposure Control for Dose Reduction was Utilized. CONTRAST: CT scan of the chest, abdomen and pelvis is performed without and with IV Contrast, patient injected with 125 mL of Isovue 370. COMPARISON: None TECHNIQUE: Helical imaging obtained through the chest, abdomen and pelvis during arterial phase jaylen karen administration of radiographic contrast intravenously. FINDINGS: See report from [employer] regarding preprocedural planning CHEST: Lower Neck and Thyroid: There is a left thyroid nodule, correlate with thyroid ultrasound. There is a 17 mm well-circumscribed subcutaneous nodule overlying the left shoulder. Correlate with ultrasound and possible fine needle aspiration. Lungs: No significant findings Central Airway: No significant findings Pleura: No significant findings Pulmonary Arteries: No significant findings Heart and Pericardium: No significant findings Lymph Nodes: No significant findings Mediastinum & Esophagus: No significant findings AV Calcification Severity: Mild to moderate ABDOMEN/PELVIS: Please note arterial phase of the imaging limits detailed evaluation of the solid abdominal organs. Liver: No significant findings Spleen: No significant findings Kidneys: No significant findings Adrenal Glands: No significant findings Pancreas: No significant findings Gallbladder: Multiple gallstones. Bowel and Mesentery: No significant findings Lymph Nodes: No significant findings Urinary Bladder: No significant findings Pelvic Organs: Densely calcified uterine fibroid. Fluid within the endometrial cavity and pelvic ultr asound is recommended for further evaluation. Fluid within the uterine cavity in a patient of this ag e group requires further evaluation. Other: No significant findings Other Lines/Tubes/Devices/Hardware: None IMPRESSION: 1. 17 mm well-circumscribed subcutaneous nodule in the soft tissues overlying the left shoulder and f urther evaluation with thyroid ultrasound with consideration given to possible fine-needle aspiration . 2. Left thyroid nodule and thyroid ultrasound is recommended with possible consideration for ultrasou nd-guided fine-needle aspiration. 3. Densely calcified uterine fibroid and fluid within the urinary cavity. In a patient of this age gr oup, further evaluation with pelvic ultrasound is warranted. 4. Cholelithiasis
[2024-08-04 12:35] LABS: Partial Thromboplastin Time 26.2 sec (22.0-30.0); Prothrombin Time 11.1 sec (10.0-12.5)
--- NOTE | 2024-08-04 15:07 | US ---
EXAMINATION TYPE: US carotid duplex BILAT DATE OF EXAM: 08/04/2024 COMPARISON: CT TAVR planning CLINICAL INDICATION: Female, 84 years old with history of R55 SYNCOPE; Syncope per order, patient sta rajiv she has not had syncopal episode. Hx hypertension, hyperlipidemia, prior smoker. TECHNIQUE: Carotid duplex ultrasound examination. Indirect Doppler criteria was utilized. FINDINGS: EXAM MEASUREMENTS: RIGHT: Peak Systolic Velocity (PSV) cm/sec ----- Right CCA: 80.5 ----- Right ICA: 55.7 bulb measurement ----- Right ECA: 73.6 ICA/CCA ratio: 0.7 RIGHT: End Diastole cm/sec ----- Right CCA: 22.9 ----- Right ICA: 27.0 bulb measurement ----- Right ECA: 16.4 LEFT: Peak Systolic Velocity (PSV) cm/sec ----- Left CCA: 67.7 ----- Left ICA: 143.1 ----- Left ECA: 56.7 ICA/CCA ratio: 2.1 LEFT: End Diastole cm/sec ----- Left CCA: 28.1 ----- Left ICA: 59.1 ----- Left ECA: 10.4 VERTEBRALS (direction of flow): Right Vertebral: Antegrade Left Vertebral: Antegrade Rhythm: Normal VIOLIN MECHANIC NOTES: Difficult and limited exam due to tortuous vessels. Possible small segment of t he proximal right ICA seen with questionable tardus parvus waveform. Elevated velocity within left distal ICA. IMPRESSION: 1. Technically difficult and limited exam due to the degree of tortuosity at the level of the right c arotid bifurcation. The proximal right ICA is not felt to be adequately assessed as there is question able parvus tardus waveform. CT angiography of the neck and further evaluate 2. Some elevation in velocities within the distal left ICA. A moderate (50-69%) left ICA stenosis is difficult to exclude. Again, can be further assessed on CT angiography. Criteria for Assigning % of Stenosis / Diameter reduction (Estimation based on the indirect measurements of the internal carotid artery velocities (ICA PSV). 1. Normal (no stenosis)=ICA PSV < 125 cm/s: ratio < 2.0: ICA EDV<40 cm/s. 2. Less than 50% stenosis=ICA PSV < 125 cm/s: ratio < 2.0: ICA EDV<40 cm/s. 3. 50 to 69% stenosis=ICA PSV of 125 to 230 cm/s: ration 2.0 ? 4.0: ICA EDV 40-100 cm/s. 4. Greater than 70% stenosis to near occlusion= ICA PSV > 230 cm/s: ratio > 4.0: ICA EDV > 100 cm/s. 5. Near occlusion= ICA PSV velocities may be low or undetectable: variable ratio and ICA EDV. 6. Total occlusion=unable to detect flow.
[2024-08-04 17:31] LABS: Chol/HDL Ratio 2.05 Ratio; LDL Cholesterol,Calculated 56.2 mg/dL (0.0-131.0)
== END | disposition home or self-care (01) ==
LOC: LABWHC1 08:50
PROVIDERS: ATTEND Thoracic Surgery (Cardiothoracic Vascular Surgery)
DX: I35.0 Nonrheumatic aortic (valve) stenosis
CPT/HCPCS: 36415; 71275; 74174; 80053; 80061; 81003; 82248; 83036; 83735; 83880; 84443; 85025; 85610; 85730; 87086; 93880; 94150

== ENCOUNTER → 2024-08-08 | Outpatient (CLI) | payer MEDICARE | END | disposition home or self-care (01) | LOC: LABWHC1 16:21 | PROVIDERS: ATTEND Family Medicine | DX: Z01.818 Encounter for other preprocedural examination | CPT/HCPCS: 86850; 86900; 86901 ==

== ENCOUNTER 2024-08-10 05:44 | Inpatient (IN) | payer MEDICARE ==
[2024-08-10] MEDS ORDERED: INSULIN REGULAR 100 UNIT in SODIUM CHLORIDE 0.9% 100 ML IV PRN (06:00)
[2024-08-10] MEDS ORDERED: PROTAMINE SULFATE 250 MG in EMPTY BAG 1 BAG IV PRN (06:00)
[2024-08-10] MEDS ORDERED: ELECTROLYTE-A SOLUTION 1,000 ML with POTASSIUM CHLORIDE 100 MEQ, MAGNESIUM SULFATE 16 M... IV PRN (06:00)
[2024-08-10] MEDS ORDERED: TRANEXAMIC ACID 2,000 MG in SODIUM CHLORIDE 0.9% 80 ML IV PRN (06:00)
[2024-08-10] MEDS ORDERED: CLEVIDIPINE BUTYRATE 25 MG in EMPTY BAG 1 BAG IV PRN (06:00)
[2024-08-10] MEDS ORDERED: SODIUM CHLORIDE 0.9% 500 ML 500 ML INTRAARTER PRN (06:00)
[2024-08-10] MEDS ORDERED: NITROGLYCERIN-D5W PMX 25 MG/250 ML BTL IV PRN (06:00)
[2024-08-10] MEDS: SODIUM CHLORIDE 0.9% 1,000 ML IV ONE (06:26)
[2024-08-10 06:30] LABS: Glucose,Whole Blood 105 mg/dL (70-110)
[2024-08-10] MEDS: CLOPIDOGREL 75 MG TAB PO ONE (06:34)
[2024-08-10] MEDS: METOPROLOL TARTRATE 25 MG TAB PO ONE (07:01)
[2024-08-10] MEDS ORDERED: SUCCINYLCHOLINE CHLORIDE 200 MG/10 ML VIAL IV ONE (07:40)
[2024-08-10] MEDS ORDERED: ROCURONIUM 10 MG/ML (5 ML VIAL) IV ONE (07:40)
[2024-08-10] MEDS ORDERED: MIDAZOLAM 2 MG/2 ML VIAL ONE (07:40)
[2024-08-10] MEDS ORDERED: NEOSTIGMINE 1 MG/ML 10 ML VIAL ONE (07:40)
[2024-08-10] MEDS ORDERED: PHENYLEPHRINE 10 MG/ML VIAL ONE (07:40)
[2024-08-10] MEDS ORDERED: GLYCOPYRROLATE 0.2 MG/ML 2 ML VIAL ONE (07:40)
[2024-08-10] MEDS ORDERED: HEPARIN SODIUM,PORCINE 10,000 UNIT/ML 1 ML VIAL ONE (07:40)
[2024-08-10] MEDS ORDERED: fentaNYL (PF) 50 MCG/ML 2 ML AMP ONE (07:40)
[2024-08-10] MEDS: IOPAMIDOL-370 100ML BTL INJ ONE (09:45)
[2024-08-10] MEDS ORDERED: Magnesium Replacement Protocol 1 EACH MISC MISCELLANE PRN (10:08)
[2024-08-10] MEDS ORDERED: IPRATROPIUM-ALBUTEROL 3 ML NEB INHALATION PRN (10:08)
[2024-08-10] MEDS ORDERED: Potassium Replacement Protocol 1 EACH MISC MISCELLANE PRN ×2 (10:08→18:01)
[2024-08-10] MEDS ORDERED: CLEVIDIPINE BUTYRATE 25 MG in EMPTY BAG 1 BAG IV SCH (10:08)
[2024-08-10] MEDS ORDERED: CALCIUM GLUCONATE IN NACL 2 GM in SALINE 1 100ML.BAG IVPB PRN (10:08)
[2024-08-10] MEDS ORDERED: VANCOMYCIN IV PER PHARMACY 1 EACH MISC MISCELLANE PRN (10:08)
[2024-08-10] MEDS: IV FLUID CONTINUATION 1,000 ML IV ONE (10:15)
--- NOTE | 2024-08-10 10:34 | P.OP ---
Date of Procedure: 08/10/24 Preoperative Diagnosis: Symptomatic tricuspid calcific aortic valve stenosis Postoperative Diagnosis: Same Procedure(s) Performed: Percutaneous transfemoral transcatheter aortic valve replacement with 29 mm Medtronic evolute flex transcatheter valve Implants: Medtronic evolute flex 29 mm transcatheter aortic valve x 2 Anesthesia: GETA Surgeon: Ovidio Vidales (Cardiovascular surgeon) General Internist And Physician Leader #1: Dell Alva (company truck driver) General Internist And Physician Leader #2: Wm Garsia (Physician business banking sales assistant) Estimated Blood Loss (ml): 100 IV fluids (ml): 500 Urine output (ml): 0 Pathology: none sent Condition: stable Disposition: PACU Indications for Procedure: 84-year-old female with symptomatic aortic stenosis. She was evaluated in the high risk valve clinic and felt to be appropriate for either surgical or transcatheter aortic valve replacement. Given her age, it was felt most appropriate to perform transcatheter valve implantation and this was the patient's preference. Operative Findings: Good bilateral femoral access was obtained and there was no difficulty in passing catheters. Despite a high gradient across the aortic valve, the aortic valve was crossed easily. Following initial valve deployment on removing the valve delivery system from the aortic root the valve dislodged from the aortic annulus into the ascending aorta. We able to easily snare the valve and we cross it with a new valve and obtain excellent positioning of the second valve with trivial paravalvular aortic insufficiency and excellent valve expansion following post deployment valvuloplasty. Excellent groin hemostasis was obtained with no evidence of leak and excellent flow to the lower extremity on completion angiography. Patient remained hemodynamically stable throughout the procedure. There was no evidence of heart block or bradycardia. Description of Procedure: Patient was brought to the cardiac catheterization laboratory and general anesthesia was induced. The anterior torso and bilateral groins were sterilely prepped and draped. Bilateral femoral arterial access was obtained under ultrasound guidance along with left femoral venous access. The left femoral artery, a long 6 Bhutanese sheath was placed and advanced into the descending thoracic aorta. Through this a pigtail was advanced into the aortic root. An 8 Bhutanese venous sheath was placed on the left and through this a transvenous pacer was advanced into the apex of the right ventricle and tested. 6 Bhutanese sheath was placed in the right femoral artery and then 2 Perclose's devices were placed. Through this an 8 Bhutanese sheath was then placed. This was upsized to a 14 Bhutanese sheath over a stiff wire and the patient was systemically heparinized. Aortic valve was crossed from the right femoral access and a pigtail catheter placed at the apex of the ventricle. Transvalvular gradients were measured. 29 mm Medtronic Evolut flex valve was prepared on the back table and checked under fluoroscopy. 14 Bhutanese sheath in the right groin was exchanged for the valve delivery system and it was advanced through the arterial system around the aortic arch and across the aortic valve. The valve was deployed with deployment levels of 2 and 3 mm. Valve appeared to be under deployed and plan was for post deployment valvuloplasty. Unfortunately on removing the valve delivery system the valve popped out of the aortic annulus into the ascending aorta. We maintained the Lunderquist wire across the valve in the apex of the ventricle. We were able to snare the valve from the left femoral artery and pull it back into the distal ascending aorta. New 29 mm Medtronic evolute flex valve was prepared on the back table. A second arterial access was obtained in the left groin and a long 6 Bhutanese sheath advanced. Through this a pigtail was placed through the original valve and back into the aortic root. Second transcatheter valve was brought up on the field and checked under fluoroscopy. The old valve delivery system was removed and exchanged for the new valve delivery system over the Lunderquist wire maintained in the apex of the ventricle. Valve delivery system was advanced through the arterial system and around the aortic arch. We were able to fairly easily cross the first valve with the second valve delivery system maintaining tension on our snare and then crossed the aortic valve with the new valve. This valve was deployed at depths of 4 mm. Again the valve appeared under deployed. We maintained the wire in the apex of the ventricle and were able to successfully remove the valve delivery system and exchange for a 14 Bhutanese sheath. 24 mm true balloon was passed through the 14 Bhutanese sheath over the stiff wire and advanced across the aortic valve. Post dilatation was performed under rapid ventricular pacing. This resulted in excellent expansion of the valve. Moderate aortic insufficiency was reduced to trivial and we excepted the position. Dilatation balloon and wire were removed. Pigtail catheter was now pulled back into the proximal arch of the aorta and aortic arch injection performed. There was no obstruction to flow in the great vessels to the head and the original valve appeared well stabilized in the distal ascending aorta. Heparin was now reversed with protamine. 14 Bhutanese sheath was removed on the right and the 2 Perclose devices deployed with excellent hemostasis. Completion angiography demonstrated no leak and good flow down the right femoral system. Pigtail catheter and permanent pacemaker were removed and the 2 arterial catheters were initially left in place with plans to remove them under pressure stabilization once the ACT had normalized. Patient was awakened and transferred to recovery room.
--- NOTE | 2024-08-10 10:35 | XR ---
EXAMINATION TYPE: XR chest 1V portable DATE OF EXAM: 08/10/2024 HISTORY: Post Operative Cardiac Surgery COMPARISON: 01/16/2022 TECHNIQUE: Single view of the chest is submitted. FINDINGS: Cardiovascular stent devices are noted in place. No evidence for pneumothorax. Minimal pleural parenc hymal changes about the perihilar regions. There is no evidence for focal infiltrate. The heart is stable. Hilar and mediastinal structures are within normal limits. Degenerative changes are seen of the dorsal spine. IMPRESSION: 1. Cardiovascular stent devices are noted in place. No evidence for pneumothorax. Minimal pleural pa renchymal changes about the perihilar regions.
[2024-08-10 11:19] LABS: Basophils % (A) 1 %; Eosinophils # (A) 0.2 k/uL (0-0.7); Eosinophils % (A) 3 %; HCT 34.7 % (34.0-46.0); HGB 11.6 gm/dL (11.4-16.0); Lymphocytes # (A) 1.7 k/uL (1.0-4.8); Lymphocytes % (A) 26 %; MCH 29.8 pg (25.0-35.0); MCHC 33.5 g/dL (31.0-37.0); MCV 88.9 fL (80.0-100.0); Mean Platelet Volume 7.1; Monocytes # (A) 0.3 k/uL (0-1.0); Monocytes % (A) 5 %; Neutrophils % (A) 63 %; Platelet Count 300 k/uL (150-450); RDW 13.3 % (11.5-15.5); WBC 6.4 k/uL (3.8-10.6)
--- NOTE | 2024-08-10 12:18 | P.ANPRN ---
Procedure Note - Anesthesia - STVEENSON Intraop Pre Bypass STEVENSON Intraop - Anesthesia Date of Procedure: 08/10/24 Pre-operative Diagnosis: Aortic stenosis Post-operative Diagnosis: S/P TAVR Surgeon: Ovidio Vidales Ejection Fraction: Normal Regional Wall Motion Abnormalities: None Left Ventricle Hypertrophy: Yes R. Ventricle Function: Normal Anatomy: Trileaflet Aortic Stenosis: Severe Aortic Regurgitation: Mild Mitral Stenosis: None Mitral Regurgitation: Mild Tricuspid Stenosis: None Pulmonic Stenosis: None Pulmonic Regurgitation: Trace R. Atrial Dilation: Yes R. Atrial PFO: No L. Atrial Dilation: Yes Aortic Dissection: No Aortic Calcification: Moderate Plural Effusion: None
[2024-08-10 12:19] LABS: African American GFR (CKD) >90 (>60 ml/min/1.73 sqM); Anion Gap 8 mmol/L; Blood Urea Nitrogen 10 mg/dL (7-17); Calcium 8.5 mg/dL (8.4-10.2); Carbon Dioxide 24 mmol/L (22-30); Chloride 102 mmol/L (98-107); Glucose 129 mg/dL (74-99); Non-African American GFR(CKD) >90 (>60 ml/min/1.73 sqM); Potassium 3.6 mmol/L (3.5-5.1); Sodium 134 mmol/L (137-145)
--- NOTE | 2024-08-10 12:21 | P.ANPRN ---
Procedure Note - Anesthesia - STEVENSON Intraop Post Bypass STEVENSON Intraop Post Bypass Procedure Performed: TAVR Ejection Fraction: Normal Regional Wall Motion Abnormalities: None R. Ventricle Function: Normal Aortic Valve: Peak velocity improved from 4.6 m/s to 1.4 m/s, Max gradient from 84 mmHg to 8 mmHg, mean from 58 mmHg to 4 mmHg Mitral Valve: Unchanged Tricuspid: Unchanged Pulmonic: Unchanged Aortic Dissection: No
[2024-08-10] MEDS: IPRATROPIUM-ALBUTEROL 3 ML NEB INHALATION SCH ×2 (13:03→15:57)
--- NOTE | 2024-08-10 14:41 | P.PCN ---
Date of Procedure: 08/10/24 Operative Findings: TRANSCATHETER AORITC VALVE REPLACEMENT OPERATIVE REPORT PROCEDURE PERFORMED: 1. Percutaneous Aortic Valve Implantation using a 29 mm Evolut Medtronic valve 2. Transesophageal echocardiography (performed by anesthesia) 3. Ultrasound guided access and repair of the right femoral artery access site by Perclose closure device. 4. Placement of temporary pacemaker wire. 5. Aortic root angiography and aortic arch angiogram INDICATIONS: 1. 84 year-old with a history of severe symptomatic aortic valve stenosis. The patient was experiencing shortness of breath consistent with NYHA class II PERFORMING PHYSICIANS: 1. Dell Alva MD Interventional Cardiology. 3. Ovidio Vidales MD, Cardiothoracic Surgeon. SEDATION: General anesthesia provided by anesthesia, see separate note APPROACH: Bilateral common femoral arteries and left common femoral vein PROCEDURE DESCRIPTION: The patient was discussed at valve clinic with multidisciplinary approach with cardiothoracic surgeon as well as timber management specialist and thought better treated with TAVR. Risks, benefits, and alternatives of the procedure had been explained to the patient who understood the risks and agreed to proceed. After consents were obtained, patient was brought to the transcatheter aortic valve implantation room in the cardiac forestry laborer and general anesthesia was provided by the anesthesiologist (see separate report). Once full body sterile prep was performed, the left common femoral vein was cannulated using micropuncture technique under ultrasound guidance micropuncture wire passed easily then I placed a 6 Kosovan 23 cm at the left common femoral vein. Subsequently under fluoroscopic guidance a balloontipped temporary pacemaker was advanced to the right ventricle apex and left LDL. Pacing threshholds were checked and deemed appropriate. Next the left femoral artery was accessed using a modified Seldinger technique, ultrasound guidance and micropuncture technique. A 6 Kosovan Rabi sheath was placed in the left femoral artery. Next, a 6-Kosovan pigtail catheter was advanced into the aorta and positioned in the aortic root, aortic root angiography was performed to determine optimal deployment angle. The right common femoral artery was accessed using modified Seldinger technique, micropuncture technique and under direct ultrasound guidance. Femoral angiogram was done showing access in the common femoral artery and a 6Fr sheath was placed. Next preclose technique was performed using a two Perclose. Next a 0.035 Lunderquist wire was placed in the Aorta via a pigtail catheter. Over that the arteriotomy a 14 Fr [place] sheath was placed. Next a 6F- AL1 catheter was advanced over a wire to the aortic root. A straight wire was advanced through the catheter and used to cross the severely stenotic valve. The AL1 was then exchanged for a 6Fr pigtail catheter and pressure measurements were obtained. The 0.035 Lunderquist wire was then positioned in the apex. Next a 29 mm Evolut-Medtronic was advanced. The valve was then positioned across the aortic valve and confirmed with aortic root angiography. [The valve was initially partially deployed however needed repositioning and therefore was recaptured.] The valve was then deployed in proper position using slow deployment and with rapid pacing in conjuncture with aortic root angiography and STEVENSON. Subsequently we noticed that the valve was dislodge toward the aortic root. At that point we decided to snare the valve while we were started to preparing a second valve to be placed. The patient remains hemodynamically stable during that time. At that point I accessed the left common femoral artery using micropuncture technique and subsequently I placed a 6 Kosovan sheath in the left common femoral artery. The previous 45 cm sheath was used to snare the previous valve. So what I did is I placed a dilator and 035 wire in the long 45 cm sheath and I advanced the sheath all the way to be just distal to the previous valve. I was able to snare the valve to the ascending aorta just proximal to the takeoff of the innominate artery. Subsequently we were able to prepare a new valve and advanced that valve over the 035 Lunderquist wire which was kept in place. The new valve was advanced gently through the old valve. The old valve was staying stationary. Subsequently we deployed the valve using adjunctive transesophageal echocardiogram and aortic root injection under pacing. Please note that the patient remains hemodynamically stable throughout the procedure. The second valve was deployed successfully in the proper position was confirmed using transesophageal echocardiogram. After that we decided to do an aortic arch angiogram which showed good flow to the 3 major arteries in the arch. There was a trivial perivalvular leak noted. The preclose Perclose was then deployed in the right femoral artery and hemostasis was achieved. An angiogram through a rim catheter was performed from the left common femoral artery and showed good hemostasis. The sheaths in the left common femoral arteries were pulled manually. The patient was then transported to the ICU in hemodynamically stable condition, requiring no pressor support. RECOMMENDATIONS: The patient will be monitored in the ICU for hemodynamic and electrical stability. Patient will be on aspirin and Plavix.
[2024-08-10] MEDS: VANCOMYCIN 1,500 MG in SODIUM CHLORIDE 0.9% 500 ML 500 ML IVPB SCH (17:59)
[2024-08-10] MEDS: POTASSIUM CHLORIDE ER 20 MEQ TAB.ER PO SCH (18:12)
[2024-08-10] MEDS: SODIUM CHLORIDE 0.9% 1,000 ML IV SCH (18:40)
[2024-08-10] MEDS: ATORVASTATIN 10 MG TAB PO ONE (18:42)
[2024-08-10] MEDS: LACTATED RINGERS 1,000 ML IV SCH (18:42)
[2024-08-10] MEDS: ASPIRIN 325 MG TAB PO ONE (18:42)
[2024-08-10] MEDS: CLINDAMYCIN 600 MG in DEXTROSE 5% IN WATER 50 ML IVPB ONE (18:43)
[2024-08-10 19:04] LABS: African American GFR (CKD) >90 (>60 ml/min/1.73 sqM); Anion Gap 9 mmol/L; Blood Urea Nitrogen 13 mg/dL (7-17); Carbon Dioxide 23 mmol/L (22-30); Chloride 102 mmol/L (98-107); Glucose 121 mg/dL (74-99); Non-African American GFR(CKD) >90 (>60 ml/min/1.73 sqM); Potassium 3.9 mmol/L (3.5-5.1); Sodium 134 mmol/L (137-145)
[2024-08-10 19:05] LABS: HCT 35.6 % (34.0-46.0); MCH 29.7 pg (25.0-35.0); MCHC 33.8 g/dL (31.0-37.0); MCV 87.9 fL (80.0-100.0); Mean Platelet Volume 7.6; Platelet Count 264 k/uL (150-450); RBC 4.06 m/uL (3.80-5.40); RDW 13.8 % (11.5-15.5); WBC 12.3 k/uL (3.8-10.6)
[2024-08-10] MEDS: methIMAzole 5 MG TAB PO SCH (20:01)
[2024-08-11] MEDS: HEPARIN SODIUM,PORCINE 5,000 UNIT/ML 1 ML VIAL SQ SCH
[2024-08-11 07:58] LABS: Ionized Calcium 4.7 mg/dL (4.5-5.3)
[2024-08-11 08:06] LABS: ALT 12 U/L (4-34); AST 31 U/L (14-36); African American GFR (CKD) >90 (>60 ml/min/1.73 sqM); Albumin 3.1 g/dL (3.5-5.0); Alkaline Phosphatase 55 U/L (38-126); Anion Gap 6 mmol/L; Blood Urea Nitrogen 12 mg/dL (7-17); Calcium 8.4 mg/dL (8.4-10.2); Carbon Dioxide 22 mmol/L (22-30); Chloride 105 mmol/L (98-107); Glucose 94 mg/dL (74-99); Magnesium 1.8 mg/dL (1.6-2.3); Non-African American GFR(CKD) >90 (>60 ml/min/1.73 sqM); Potassium 3.6 mmol/L (3.5-5.1); Sodium 133 mmol/L (137-145); Total Bilirubin 0.8 mg/dL (0.2-1.3); Total Protein 5.3 g/dL (6.3-8.2)
[2024-08-11] MEDS: CALCIUM CARBONATE 500 MG CHEWABLE PO SCH (08:14)
[2024-08-11] MEDS: VIT A,C & E-LUTEIN-MINERALS 1 EACH TAB PO SCH (08:15)
[2024-08-11] MEDS: CHOLECALCIFEROL 25 MCG (1000 IU) TABLET PO SCH (08:15)
[2024-08-11] MEDS: FENOFIBRATE 160 MG TAB PO SCH (08:15)
--- NOTE | 2024-08-11 08:17 | XR ---
EXAMINATION TYPE: XR chest 1V portable DATE OF EXAM: 08/11/2024 HISTORY: Post Operative Cardiac Surgery COMPARISON: 08/10/2024 TECHNIQUE: Single view of the chest is submitted. FINDINGS: Demonstrated are scattered senescent parenchymal change. Cardiovascular stent devices are noted in p lace. No evidence for pneumothorax. There is no evidence for focal infiltrate. The heart is stable. Hilar and mediastinal structures are within normal limits. Degenerative changes are seen of the dorsal spine. IMPRESSION: 1. Chronic changes without evidence for acute pulmonary disease.
[2024-08-11 08:29] LABS: Basophils % (A) 0 %; Eosinophils # (A) 0.1 k/uL (0-0.7); Eosinophils % (A) 1 %; Lymphocytes # (A) 1.2 k/uL (1.0-4.8); Lymphocytes % (A) 13 %; MCH 29.7 pg (25.0-35.0); MCHC 33.1 g/dL (31.0-37.0); MCV 89.8 fL (80.0-100.0); Mean Platelet Volume 7.2; Monocytes # (A) 0.6 k/uL (0-1.0); Monocytes % (A) 7 %; Neutrophils # (A) 7.2 k/uL (1.3-7.7); Neutrophils % (A) 78 %; Platelet Count 240 k/uL (150-450); RBC 3.23 m/uL (3.80-5.40); RDW 13.5 % (11.5-15.5); WBC 9.3 k/uL (3.8-10.6)
[2024-08-11 08:30] LABS: HGB 9.6 gm/dL (11.4-16.0)
[2024-08-11] MEDS ORDERED: hydroCHLOROthiazide 25 MG TAB PO SCH (09:00)
[2024-08-11] MEDS ORDERED: LOSARTAN 50 MG TAB PO SCH (09:00)
[2024-08-11] MEDS ORDERED: NON FORMULARY DRUG (Omega-3 Fatty Acids/Fish Oil [Fish Oil 1,000 Mg Softgel] 1 EACH Capsul PO SCH (09:00)
--- NOTE | 2024-08-11 09:42 | CA ---
Transthoracic Echo Report Name: Aleena Mclain Age: 84 Gender: F : 1940 Exam Date: 08/10/2024 17:24 Exam Location: [facility] Ht (in): 60 Wt (lb): 169 Ordering Physician: Dell Alva MD ([id number]) Attending/Referring Phys: Clinical Liaison Sheryl Medel RDCS Procedure CPT: Indications: post TAVR Cardiac Hx: TAVR Technical Quality: Fair Contrast 1: Total Dose (mL): Contrast 2: Total Dose (mL): MEASUREMENTS (Male / Female) Normal Values 2D ECHO LV Diastolic Diameter PLAX 4.4 cm 4.2 - 5.9 / 3.9 - 5.3 cm LV Systolic Diameter PLAX 2.7 cm IVS Diastolic Thickness 1.4 cm 0.6 - 1.0 / 0.6 - 0.9 cm LVPW Diastolic Thickness 1.3 cm 0.6 - 1.0 / 0.6 - 0.9 cm LV Relative Wall Thickness 0.6 RV Internal Dim ED PLAX 2.9 cm LVOT Diameter 1.9 cm LA Systolic Diameter LX 4.0 cm 3.0 - 4.0 / 2.7 - 3.8 cm LA Volume 61.1 cm??? 18 - 58 / 22 - 52 cm??? LA Volume Index 33.3 cm???/m??? 16 - 28 cm???/m??? M-MODE Aortic Root Diameter MM 2.3 cm DOPPLER AV Peak Velocity 164.3 cm/s AV Peak Gradient 10.8 mmHg AV Mean Velocity 111.1 cm/s AV Mean Gradient 5.6 mmHg AV Velocity Time Integral 35.1 cm LVOT Peak Velocity 106.8 cm/s LVOT Peak Gradient 4.6 mmHg LVOT Velocity Time Integral 22.8 cm LVOT Stroke Volume 62.1 cm??? LVOT Stroke Volume Index 35.8 ml/m??? LVOT Cardiac Index 2470.7 cm???/min???m??? AV Area Cont Eq vti 1.8 cm??? AV Area Cont Eq pk 1.8 cm??? MV Peak Velocity 132.4 cm/s MV Peak Gradient 7.0 mmHg MV Mean Velocity 66.8 cm/s MV Mean Gradient 2.2 mmHg MV Velocity Time Integral 25.3 cm MV Area PHT 2.6 cm??? Mitral E Point Velocity 104.4 cm/s Mitral A Point Velocity 123.5 cm/s Mitral E to A Ratio 0.8 MV Deceleration Time 295.5 ms TR Peak Velocity 226.7 cm/s TR Peak Gradient 20.6 mmHg Right Ventricular Systolic Press 35.6 mmHg FINDINGS Left Ventricle Left ventricular ejection fraction is estimated at 55-60 %. Left ventricular cavity size normal. Moderately increased septal wall thickness. Mildly increased posterior wall thickness. Normal left ventricular wall motion. Right Ventricle Normal right ventricular size and function. Mild pulmonary hypertension. Right Atrium Normal right atrial size. No right atrial thrombus or mass seen. Left Atrium Mildly increased left atrial diameter. Mildly increased left atrial volume. Mildly increased left atrial area. Mitral Valve Mitral valve thickened. Mild mitral annular calcification. Mild mitral regurgitation. Aortic Valve Normally functioning bioprosthetic aortic valve without stenosis with a peak velocity of 1.6 m/s, peak gradient 11 mmHg, mean gradient 6 mmHg, and estimated aortic valve area of 1.8 cm???. No central aortic regurgitation. Mild paravalvular aortic regurgitation. Tricuspid Valve Structurally normal tricuspid valve. Mild tricuspid regurgitation. Pulmonic Valve Pulmonic valve not well visualized. Mild pulmonic regurgitation. Pericardium No pericardial or pleural effusion. Aorta Normal size aortic root and proximal ascending aorta. CONCLUSIONS normal ef normal bioprosthetic valve Previewed by: Dr. Joey Dorantes MD (Electronically Signed) Final Date: 11 August 2024 09:41
--- NOTE | 2024-08-11 12:34 | P.PN ---
Subjective Progress Note Date: 08/11/24 Principal diagnosis: Symptomatic trileaflet calcific aortic valve stenosis. Past medical history significant for hypertension, hyperlipidemia, hypothyroid, skin cancer, and moderate mitral valve regurgitation, moderate tricuspid valve regurgitation per STEVENSON and has a remote history of nicotine dependence. POD #1 Percutaneous transfemoral transcatheter aortic valve replacement with 29 mm Medtronic evolute flex transcatheter valve, Transesophageal echocardiogram performed by anesthesia, ultrasound guided access and repair of the right femoral artery accessed by Perclose closure device, placement of temporary pacemaker wire, aortic root angiography and aortic arch angiogram. Left bundle-branch block status post TAVR, unexpected, but possibly secondary to TAVR procedure. The patient was seen and examined at Her bedside this morning 08/11/2024 On the third floor cardiac stepdown unit. She is currently sitting up to the bedside chair, is awake, alert, oriented 3 and is in no acute apparent distress. Her remote telemetry is showing Normal sinus rhythm with a left bundle branch block heart rate 72 BPM. She denies any complaints of pain or shortness of breath at this time, although does report that she does have episodes of pain with taking a deep breath. Oxygen saturations are 99% on room air and he is achieving 1500 mL on her incentive spirometry with encouragement. Bilateral groin sites are clean and dry, Soft palpate. She has been up ambulating in her room independently. The patient's son is present at her bedside. Laboratory and chest x-ray results reviewed. Objective - Vital Signs Vital signs: Vital Signs Temp 98.0 F 08/11/24 00:00 Pulse 70 08/11/24 08:00 Resp 16 08/11/24 08:00 BP 91/53 08/11/24 08:00 Pulse Ox 98 08/11/24 08:00 FiO2 Intake & Output 08/10/24 08/11/24 08/11/24 18:59 06:59 18:59 Intake Total 150 118 Output Total 1 Balance 150 -1 118 Weight 80.8 kg Intake: IV 150 Oral 118 Output: Urine 1 Other: Voiding Method Toilet # Voids 0 1 - Exam CONSTITUTIONAL: Appears comfortable, cooperative, no acute distress RESPIRATORY: Lungs sounds essentially clear throughout, diminished to her bilateral bases. Respirations Symmetrical, nonlabored. Currently on room air with oxygen saturation 99%, Achieving 1500 mL on her incentive spirometry with encouragement. CARDIOVASCULAR: S1, S2 present. Regular rate and rhythm, Remote telemetry show ing Normal sinus rhythm with a left bundle branch block heart rate 72 BPM. Palpable peripheral pulses bilaterally. No edema present. GASTROINTESTINAL: Abdomen soft, nontender, nondistended. Active bowel sounds present 4 quadrants. Tolerating diet. GENITOURINARY: Continues to void. INTEGUMENTARY: Skin is warm and dry, bilateral groins soft, nontender. NEUROLOGIC: Cranial nerves II through XII intact. MUSKULOSKELETAL: Able to move all extremities, strength equal bilaterally. PSYCHIATRIC: Alert and oriented to person place and time, appropriate affect, intact judgment and insight. - Allied health notes Allied health notes reviewed: nursing - Labs CBC & Chem 7: 08/11/24 07:13 08/11/24 07:13 Labs: Abnormal Lab Results - Last 24 Hours (Table) 08/10/24 08/10/24 08/10/24 Range/Units 10:37 18:23 18:23 WBC 12.3 H (3.8-10.6) k/uL RBC (3.80-5.40) m/uL Hgb (11.4-16.0) gm/dL Hct (34.0-46.0) % Sodium 134 L 134 L (137-145) mmol/L Creatinine 0.46 L 0.46 L (0.52-1.04) mg/dL Glucose 129 H 121 H (74-99) mg/dL Total Protein (6.3-8.2) g/dL Albumin (3.5-5.0) g/dL 08/11/24 08/11/24 Range/Units 07:13 07:13 WBC (3.8-10.6) k/uL RBC 3.23 L (3.80-5.40) m/uL Hgb 9.6 L D (11.4-16.0) gm/dL Hct 29.0 L (34.0-46.0) % Sodium 133 L (137-145) mmol/L Creatinine 0.49 L (0.52-1.04) mg/dL Glucose (74-99) mg/dL Total Protein 5.3 L (6.3-8.2) g/dL Albumin 3.1 L (3.5-5.0) g/dL - Imaging and Cardiology Chest x-ray: report reviewed, image reviewed Assessment and Plan Assessment: Symptomatic trileaflet calcific aortic valve stenosis, status post percutaneous transfemoral transcatheter aortic valve replacement with a 29 mm Medtronic Evolute flex transcatheter valve History of hypertension Hyperlipidemia Hypothyroid History of skin cancer Moderate mitral valve regurgitation on STEVENSON Moderate tricuspid valve regurgitation on STEVENSON Remote history of nicotine dependence Normal sinus rhythm with left bundle branch block, unexpected but could be potentially secondary to TAVR placement Plan: Hold hydrochlorothiazide and Cozaar due to lower blood pressures, Current blood pressure is 96/52 with a map of 66. Increase activity as tolerated. Out of bed for all meals. Continue current medication regimen. Will monitor Daily labs and Chest [id number]. Electrolyte replacement per protocols. Pain control with current medication regimen. Awaiting post TAVR echocardiogram. Keep admitted in the hospital for another 24 hours to watch her left bundle branch block. More recommendations to follow based on patient's clinical course. Time with Patient: Greater than 30
[2024-08-11 14:18] VITALS: BMI 34.7
--- NOTE | 2024-08-11 17:45 | CA ---
Transthoracic Echo Report Name: Aleena Mclain Age: 84 Gender: F : 1940 Exam Date: 08/11/2024 09:10 Exam Location: [facility] Ht (in): 60 Wt (lb): 170 Ordering Physician: Wm Garsia Attending/Referring Phys: Ady KEVIN Pipefitter Mili Ray RDCS Procedure CPT: Indications: post TAVR Cardiac Hx: 1day post TAVR Technical Quality: Fair Contrast 1: Total Dose (mL): Contrast 2: Total Dose (mL): MEASUREMENTS (Male / Female) Normal Values 2D ECHO LV Diastolic Diameter PLAX 4.3 cm 4.2 - 5.9 / 3.9 - 5.3 cm LV Systolic Diameter PLAX 2.8 cm IVS Diastolic Thickness 1.4 cm 0.6 - 1.0 / 0.6 - 0.9 cm LVPW Diastolic Thickness 1.2 cm 0.6 - 1.0 / 0.6 - 0.9 cm LV Relative Wall Thickness 0.6 RV Internal Dim ED PLAX 2.0 cm LVOT Diameter 1.9 cm LA Systolic Diameter LX 5.2 cm 3.0 - 4.0 / 2.7 - 3.8 cm LV Diastolic Volume MOD BP 70.4 cm??? 67 - 155 / 56 - 104 cm??? LV Systolic Volume MOD BP 20.7 cm??? 22 - 58 / 19 - 49 cm??? LV Ejection Fraction MOD BP 70.6 % >= 55 % LV Cardiac Index MOD BP 1997.2 cm???/min???m??? LV Diastolic Volume MOD 4C 85.9 cm??? LV Systolic Volume MOD 4C 28.2 cm??? LV Ejection Fraction MOD 4C 67.2 % LV Cardiac Index MOD 4C 2318.0 cm???/min???m??? LV Diastolic Length 4C 7.5 cm LV Systolic Length 4C 6.3 cm LV Diastolic Volume MOD 2C 48.8 cm??? LV Systolic Volume MOD 2C 12.7 cm??? LV Ejection Fraction MOD 2C 73.9 % LV Cardiac Index MOD 2C 1450.6 cm???/min???m??? LV Diastolic Length 2C 6.3 cm LV Systolic Length 2C 5.0 cm LA Volume 91.0 cm??? 18 - 58 / 22 - 52 cm??? LA Volume Index 49.4 cm???/m??? 16 - 28 cm???/m??? M-MODE Aortic Root Diameter MM 2.3 cm LA Systolic Diameter MM 5.3 cm LA Ao Ratio MM 2.3 DOPPLER AV Peak Velocity 175.6 cm/s AV Peak Gradient 12.3 mmHg AV Mean Velocity 133.3 cm/s AV Mean Gradient 7.8 mmHg AV Velocity Time Integral 37.5 cm AI Peak Velocity 293.4 cm/s AI Peak Gradient 34.4 mmHg AI Pressure Half Time 689.2 ms LVOT Peak Velocity 106.6 cm/s LVOT Peak Gradient 4.5 mmHg LVOT Velocity Time Integral 25.4 cm LVOT Stroke Volume 68.7 cm??? LVOT Stroke Volume Index 39.4 ml/m??? LVOT Cardiac Index 2759.6 cm???/min???m??? AV Area Cont Eq vti 1.8 cm??? AV Area Cont Eq pk 1.6 cm??? MV Peak Velocity 149.8 cm/s MV Peak Gradient 9.0 mmHg MV Mean Velocity 89.8 cm/s MV Mean Gradient 3.8 mmHg MV Velocity Time Integral 43.5 cm MV Area PHT 2.6 cm??? Mitral E Point Velocity 132.7 cm/s Mitral A Point Velocity 107.4 cm/s Mitral E to A Ratio 1.2 MV Deceleration Time 292.1 ms TR Peak Velocity 296.0 cm/s TR Peak Gradient 35.1 mmHg Right Ventricular Systolic Press 39.9 mmHg FINDINGS Left Ventricle Left ventricular ejection fraction is estimated at 60-65 %. Moderately increased septal wall thickness. Mildly increased posterior wall thickness. Left ventricular cavity size normal. Right Ventricle Normal right ventricular size and function. Mild pulmonary hypertension. Right Atrium Moderate right atrial dilatation. Left Atrium Severely increased left atrial diameter. Severely increased left atrial volume. Mildly increased left atrial area. Mitral Valve Moderate thickening/calcification of the anterior mitral valve leaflet. Moderate mitral annular calcification. Moderate mitral regurgitation. Aortic Valve Normally functioning bioprosthetic aortic valve without stenosis with a peak velocity of 1.75 m/s, peak gradient 12 mmHg, mean gradient 8 mmHg. Mild paravalvular leak. Tricuspid Valve Structurally normal tricuspid valve. Mild tricuspid regurgitation. No tricuspid stenosis. Pulmonic Valve Structurally normal pulmonic valve. Trace pulmonic regurgitation. No pulmonic stenosis. Pericardium No pericardial or pleural effusion. Aorta Normal size aortic root and proximal ascending aorta. CONCLUSIONS 60-65% EF , Moderate LVH, . Mild paravalvular leak involving bioprosthetic valve in aortic position Previewed by: Dr. Joey Dorantes MD (Electronically Signed) Final Date: 11 August 2024 17:44
[2024-08-11] MEDS: ACETAMINOPHEN TAB 500 MG TAB PO PRN (20:20)
[2024-08-11] MEDS: ATORVASTATIN 10 MG TAB PO SCH (20:20)
[2024-08-11] MEDS: ASPIRIN 81 MG PO SCH (20:20)
[2024-08-12 06:51] LABS: HCT 29.4 % (34.0-46.0); HGB 9.4 gm/dL (11.4-16.0); MCH 28.6 pg (25.0-35.0); MCHC 31.9 g/dL (31.0-37.0); MCV 89.7 fL (80.0-100.0); Mean Platelet Volume 7.4; Platelet Count 203 k/uL (150-450); RBC 3.28 m/uL (3.80-5.40); RDW 13.5 % (11.5-15.5)
[2024-08-12 07:12] LABS: African American GFR (CKD) >90 (>60 ml/min/1.73 sqM); Anion Gap 4 mmol/L; Blood Urea Nitrogen 13 mg/dL (7-17); Calcium 8.4 mg/dL (8.4-10.2); Carbon Dioxide 26 mmol/L (22-30); Chloride 104 mmol/L (98-107); Glucose 87 mg/dL (74-99); Magnesium 1.9 mg/dL (1.6-2.3); Non-African American GFR(CKD) 89 (>60 ml/min/1.73 sqM); Sodium 134 mmol/L (137-145)
--- NOTE | 2024-08-12 08:06 | XR ---
EXAMINATION TYPE: XR chest 1V portable DATE OF EXAM: 08/12/2024 HISTORY: Post Operative Cardiac Surgery COMPARISON: 08/11/2024 TECHNIQUE: Single view of the chest is submitted. FINDINGS: Demonstrated are scattered senescent parenchymal change. Cardiovascular stent devices are noted in place. No evidence for pneumothorax. There is no evidence for focal infiltrate. The heart is stable. Hilar and mediastinal structures are within normal limits. Degenerative changes are seen of the dorsal spine. IMPRESSION: 1. Chronic changes without evidence for acute pulmonary disease.
[2024-08-12 11:29] VITALS: RESP 18
--- NOTE | 2024-08-12 16:13 | P.DS ---
Providers Date of admission: 08/10/24 05:44 Expected date of discharge: 08/12/24 Attending physician: Ovidio Vidales Consults: 08/09/24 08:12 Consult to Anesthesia Routine Consulting Provider: Anesthesia,Services Consult Reason/Comments: Cardiac Surgery Pre-Op 08/10/24 10:08 Consult Physician Routine Consulting Provider: Ovidio Vidales Consult Reason/Comments: Seaman Officer Consult: post cardiac surgery Do you want consulting provider notified?: Yes Primary care physician: Ashley Navarrete Hospital Course: MEDICAL HISTORY: Symptomatic trileaflet calcific aortic valve stenosis, status post percutaneous transfemoral transcatheter aortic valve replacement with a 29 mm Medtronic Evolute flex transcatheter valve History of hypertension Hyperlipidemia Hypothyroid History of skin cancer Moderate mitral valve regurgitation on STEVENSON Moderate tricuspid valve regurgitation on STEVENSON Remote history of nicotine dependence Normal sinus rhythm with left bundle branch block, unexpected but could be potentially secondary to TAVR placement PROCEDURE: Percutaneous transfemoral transcatheter aortic valve replacement with 29 mm Medtronic evolute flex transcatheter valve under STEVENSON and fluoroscopy guidance Transesophageal echocardiography performed by anesthesia Ultrasound-guided access and repair of right femoral artery access site by Perclose closure device Placement of temporary pacemaker wire Aortic root angiography HISTORY OF PRESENT ILLNESS: This is a 84-year-old female patient who follows on an outpatient basis with Dr. Navarrete for her primary care and Dr. Steele for her c ardiology care. She has a known history of symptomatic aortic valve stenosis with progressive shortness of breath with activity. She had been referred to structural heart clinic for evaluation for transcatheter aortic valve replacement after heart catheterization and transesophageal echocardiogram were completed. Echocardiography demonstrated normal left ventricular size with normal function with an ejection fraction estimated at 55 to 60%, aortic valve area 0.52 cm with a peak/mean gradient 74/49 mmHg. Heart catheterization showed normal coronary arteries with an aortic valve area of 0.6 cm. After workup was completed an STS risk score was calculated along with incremental risk and the patient was felt to be an intermediate risk for surgical aortic valve replacement, therefore transcatheter aortic valve replacement was recommended. The usual course of TAVR was discussed in detail the patient, risks and benefits were reviewed, shared decision making between cardiology, surgery, and the patient took place including the patient's preferences, and the patient consented to proceed with the procedure. HOSPITAL COURSE: The patient was brought to the hospital on 08/10/24, was taken to the extended stay area, prepared in the usual fashion, and subsequently taken to the cardiac catheterization laboratory where Dr. Alva and Dr. Vidales completed TAVR procedure under general anesthesia with fluoroscopy and STEVENSON. The valve was deployed with deployment levels of 2 and 3 mm, the valve appeared to be under deployed and plan was for post deployment valvuloplasty. Unfortunately on removing the valve delivery system the valve popped out of the aortic annulus into the ascending aorta. A new 29 mm Medtronic evolute flex valve was deployed. The valve was deployed under rapid ventricular pacing and proceeded without event. At the end of the procedure there was mean gradient 4 mmHg, hemodynamics were felt to be acceptable, and there was no evidence of significant perivalvular leak. Upon completion of the procedure the patient was extubated and was transferred to 3 S. cardiac stepdown unit where she was recovered and monitored hemodynamically. Her oxygen was titrated down, she was tolerating an oral diet, her pain was controlled, follow-up TTE demonstrated , normally functioning bioprosthetic aortic valve without stenosis, mild perivalvular leak and a peak gradient of 12 mmHg and a mean gradient of 8 mmHg. The patient was ready to be discharged to home on postoperative day #2. She received written and verbal instruction regarding his medications, activity restrictions, signs and symptoms requiring physician notification, and follow-up appointments. Plan - Discharge Summary Discharge Rx Participant: No New Discharge Prescriptions: New Acetaminophen Tab [Tylenol] 1,000 mg PO Q6HR PRN tab PRN Reason: Fever And/ Or Mild Pain (1-3) Continue gemfibroziL [Lopid] 600 mg PO QAM Atorvastatin [Lipitor] 10 mg PO HS Aspirin 81 mg PO HS Cholecalciferol [Vitamin D3 (25 Mcg = 1000 Iu)] 25 mcg PO DAILY Calcium Carbonate [Calcium] 600 mg PO DAILY Berry-3 Fatty Acids/Fish Oil [Fish Oil 1,000 mg Softgel] 1 cap PO DAILY methIMAzole [Tapazole] 2.5 mg PO HS Albuterol Inhaler [Ventolin Hfa Inhaler] 2 puff INHALATION RT-Q6H PRN PRN Reason: Dyspnea Vit C/E/Zn/Coppr/Lutein/Zeaxan [Preservision Areds 2 Softgel] 1 cap PO BID Discontinued Losartan [Cozaar] 50 mg PO QAM hydroCHLOROthiazide 25 mg PO QAM Discharge Medication List Aspirin 81 mg PO HS 06/15/14 [History] Atorvastatin [Lipitor] 10 mg PO HS 06/15/14 [History] gemfibroziL [Lopid] 600 mg PO QAM 06/15/14 [History] Albuterol Inhaler [Ventolin Hfa Inhaler] 2 puff INHALATION RT-Q6H PRN 08/24/20 [History] Calcium Carbonate [Calcium] 600 mg PO DAILY 08/24/20 [History] Cholecalciferol [Vitamin D3 (25 Mcg = 1000 Iu)] 25 mcg PO DAILY 08/24/20 [History] Berry-3 Fatty Acids/Fish Oil [Fish Oil 1,000 mg Softgel] 1 cap PO DAILY 08/24/20 [History] methIMAzole [Tapazole] 2.5 mg PO HS 08/24/20 [History] Vit C/E/Zn/Coppr/Lutein/Zeaxan [Preservision Areds 2 Softgel] 1 cap PO BID 07/22/21 [History] Acetaminophen Tab [Tylenol] 1,000 mg PO Q6HR PRN tab 08/12/24 [Rx] Follow up Appointment(s)/Referral(s): Calvin Steele MD [STAFF PHYSICIAN] - 1 Week (Follow-up with Dr. Steele on August 17, 2024 at 3:30 PM, also on October 14, 2024 at 8:15 AM for a transthoracic 2D echocardiogram and a follow-up appointment with Dr. Steele. Also scheduled for a 1 year transthoracic 2D echocardiogram on June 13, 2025 at 2:30 PM.) Ashley Navarrete MD [Primary Care Provider] - As Needed Clinic,Structural Heart [NON-STAFF] - 1 Week (You have an appointment at the valve clinic 10/14/24 @ 10:00 am for 30 day post TAVR. You also have a 1 year post TAVR appointment at the valve clinic 06/13/25 @ 1:30 pm) Ambulatory/Diagnostic Orders: Basic Metabolic Panel [LAB.AMB] Time Frame: 10/14/24, Facility: [facility], Location: Laboratory [facility] Basic Metabolic Panel [LAB.AMB] Time Frame: 06/13/25, Facility: [facility], Location: Laboratory [facility] Complete Blood Count w/diff [LAB.AMB] Time Frame: 10/14/24, Facility: [facility], Location: Laboratory [facility] Complete Blood Count w/diff [LAB.AMB] Time Frame: 06/13/25, Facility: [facility], Location: [facility] Activity/Diet/Wound Care/Special Instructions: DISCHARGE INSTRUCTIONS: 1. No driving for 1 week, or until physician gives their ok. 2. No lifting, pushing, or pulling more than 5-10 pounds for 1 week. 3. Hold both groins when you cough or sneeze for the next 2 weeks. Bruising is common, but report increased swelling, pain or fever >101F 4. Shower daily. No pool, hot tub, or bathtub for 1 week 5. No powders, lotions, ointments on incisions. 6. No straining, including for bowel movements. Use stool softner if necessary 7. Stairs are not an issue. Go slowly, using handrail and take 1 step at a time. Ambulate several times daily 8. Continue pain control per as needed orders. 9. Take only the medications listed on your discharge form 10. Eat low salt (limited to 2 grams or 2000 milligrams) daily, avoid adding salt, avoid canned/processed foods 11. Take your weight daily in the morning and record, bring with you to your follow up appointments 12. Keep all follow up appointments. You will need a valve clinic appointment at 30 days and 1 year post procedure for follow up 13. You have been referred to and are expected to begin Cardiac Rehab in approximately 4 weeks. 14. You will need antibiotics prior to any dental work, including cleanings, and any surgeries to prevent Endocarditis (bacterial infection in your heart) For any questions or concerns please call your valve coordinators: Carol Ann or Ramone @ Discharge Disposition: HOME SELF-CARE
[2024-08-12 16:44] VITALS: BP 128/71; PULSE 90; TEMP 97.9
== END 2024-08-12 18:03 | disposition home or self-care (01) | DRG 267 ==
LOC: 2ORMAIN 05:44 → EDSTATUS 08:00 → 3SCARD 12:33
PROVIDERS: ADMIT Thoracic Surgery (Cardiothoracic Vascular Surgery); ATTEND Thoracic Surgery (Cardiothoracic Vascular Surgery)
PROC: 5A1223Z Performance of Cardiac Pacing, Continuous (ICD-10-PCS; 2024-08-10)
PROC: B3101ZZ Fluoroscopy of Thoracic Aorta using Low Osmolar Contrast (ICD-10-PCS; 2024-08-10)
PROC: B246ZZ4 Ultrasonography of Right and Left Heart, Transesophageal (ICD-10-PCS; 2024-08-10)
PROC: 02RF38Z Replacement of Aortic Valve with Zooplastic Tissue, Percutaneous Approach (ICD-10-PCS; principal; 2024-08-10 08:00)
DX: I08.3 Combined rheumatic disorders of mitral, aortic and tricuspid valves (principal); Z00.6 Encounter for examination for normal comparison and control in clinical research program; E03.9 Hypothyroidism, unspecified; I10 Essential (primary) hypertension; E78.2 Mixed hyperlipidemia; I44.7 Left bundle-branch block, unspecified; Z87.891 Personal history of nicotine dependence; Z85.828 Personal history of other malignant neoplasm of skin; Z88.1 Allergy status to other antibiotic agents; Z88.2 Allergy status to sulfonamides

== ENCOUNTER 2024-08-19 13:17 | Inpatient (IN) | payer MEDICARE ==
--- NOTE | 2024-08-19 13:33 | ED ---
General Adult HPI - General Stated complaint: FAVIO Time Seen by Provider: 08/19/24 13:21 Source: patient, EMS, RN notes reviewed, old records reviewed Mode of arrival: EMS Limitations: no limitations - History of Present Illness Initial comments: Patient is an 84-year-old female present to the emergency department with concerns with difficulty breathing. Onset of symptoms was yesterday. Patient went to [facility]. Patient was diagnosed with congestive heart failure and non-ST elevation myocardial infarction and transferred here. Patient states she never had any chest discomfort. Patient does have known history of aortic valve replacement. Patient states symptoms have improved since onset. - Related Data Home Medications Medication Instructions Recorded Confirmed Aspirin 81 mg PO HS 06/15/14 08/10/24 Atorvastatin [Lipitor] 10 mg PO HS 06/15/14 08/10/24 gemfibroziL [Lopid] 600 mg PO QAM 06/15/14 08/10/24 Albuterol Inhaler [Ventolin Hfa 2 puff INHALATION RT-Q6H PRN 08/24/20 08/10/24 Inhaler] Calcium Carbonate [Calcium] 600 mg PO DAILY 08/24/20 08/10/24 Cholecalciferol [Vitamin D3 (25 25 mcg PO DAILY 08/24/20 08/10/24 Mcg = 1000 Iu)] May-3 Fatty Acids/Fish Oil [Fish 1 cap PO DAILY 08/24/20 08/10/24 Oil 1,000 mg Softgel] methIMAzole [Tapazole] 2.5 mg PO HS 08/24/20 08/10/24 Vit C/E/Zn/Coppr/Lutein/Zeaxan 1 cap PO BID 07/22/21 08/10/24 [Preservision Areds 2 Softgel] Previous Rx's Medication Instructions Recorded Acetaminophen Tab [Tylenol] 1,000 mg PO Q6HR PRN tab 08/12/24 Allergies Allergy/AdvReac Type Severity Reaction Status Date / Time cephalexin monohydrate Allergy Rash/Hives Verified 08/19/24 13:32 [From Keflex] Sulfa (Sulfonamide Allergy Rash/Hives Verified 08/19/24 13:32 Antibiotics) Review of Systems ROS Statement: Those systems with pertinent positive or pertinent negative responses have been documented in the HPI. ROS Other: All systems not noted in ROS Statement are negative. Constitutional: Denies: fever Eyes: Denies: eye pain ENT: Denies: ear pain Respiratory: Reports: as per HPI, dyspnea Cardiovascular: Denies: chest pain Endocrine: Reports: fatigue Gastrointestinal: Denies: abdominal pain Musculoskeletal: Denies: back pain Past Medical History Past Medical History: Cancer, Hyperlipidemia, Hypertension, Skin Disorder, Thyroid Disorder Additional Past Medical History / Comment(s): HX SKIN CANCER DX, "indigestion", "patch on scalp", hyperthyroid History of Any Multi-Drug Resistant Organisms: None Reported Past Surgical History: Tonsillectomy, Tubal Ligation Additional Past Surgical History / Comment(s): MULT SKIN CANCER LESIONS REMOVED, BILAT CATARACTS REMOVED Past Anesthesia/Blood Transfusion Reactions: No Reported Reaction Additional Past Anesthesia/Blood Transfusion Reaction / Comment(s): no hx blood transfusion Smoking Status: Former smoker - Past Family History Mother Family Medical History: Cancer Additional Family Medical History / Comment(s): breast cancer,heart problems Father Family Medical History: Cancer Additional Family Medical History / Comment(s): skin CA,heart problems General Exam Limitations: no limitations General appearance: alert Head exam: Present: normocephalic Eye exam: Present: normal appearance Neck exam: Present: normal inspection Respiratory exam: Present: decreased breath sounds (Bilateral bases) Cardiovascular Exam: Present: regular rate, normal rhythm GI/Abdominal exam: Present: soft. Absent: tenderness Extremities exam: Present: pedal edema (Trace bilateral). Absent: calf tenderness Neurological exam: Present: alert Psychiatric exam: Present: normal affect, normal mood Skin exam: Present: normal color Course Vital Signs 08/19/24 13:22 Temperature 99.3 F Pulse Rate 82 Respiratory 16 Rate Blood Pressure 141/70 O2 Sat by Pulse 96 Oximetry Medical Decision Making - Medical Decision Making Was pt. sent in by a medical professional or institution (, PA, WILDLIFE MANAGEMENT PROFESSOR, urgent care, hospital, or assisted...) When possible be specific @ -Patient was transferred from [facility] Did you speak to anyone other than the patient for history (EMS, parent, family, police, friend...)? What history was obtained from this source @ -I did speak to the transferring physician Did you review nursing and triage notes (agree or disagree)? Why? @ -I reviewed and agree with nursing and triage notes Were old charts reviewed (outside hosp., previous admission, EMS record, old EKG, old radiological studies, urgent care reports/EKG's, assisted records)? Report findings @ -Reviewed from [facility] Differential Diagnosis (chest pain, altered mental status, abdominal pain women, abdominal pain men, vaginal bleeding, weakness, fever, dyspnea, syncope, headache, dizziness, GI bleed, back pain, seizure, CVA, palpatations, mental health, musculoskeletal)? @ -Differential Dyspnea: Coronary syndrome, arrhythmia, tamponade, asthma, COPD, pulmonary embolism, pneumonia, pneumothorax, pulmonary effusion, anaphylaxis, diabetic ketoacidosis, flailed chest, pulmonary contusion, diaphragmatic rupture, anemia, neuromuscular, this is not meant to be an all-inclusive list. EKG interpreted by me (3pts min.). @ -As above X-rays interpreted by me (1pt min.). @ -None done CT interpreted by me (1pt min.). @ -None done U/S interpreted by me (1pt. min.). @ -None done What testing was considered but not performed or refused? (CT, X-rays, U/S, labs)? Why? @ -None What meds were considered but not given or refused? Why? @ -None Did you discuss the management of the patient with other professionals (professionals i.e. , PA, WILDLIFE MANAGEMENT PROFESSOR, lab, RT, psych nurse, case management social worker, manager advertising, teacher, food safety officer, complex case manager)? Give summary @ -Case was also discussed with Dr. Smith who will admit covering Dr. Navarrete Was smoking cessation discussed for >3mins.? @ -No Was critical care preformed (if so, how long)? @ -No Were there social determinants of health that impacted care today? How? (Homelessness, low income, unemployed, alcoholism, drug addiction, transportation, low edu. Level, literacy, decrease access to med. care, long term, rehab)? @ -No Was there de-escalation of care discussed even if they declined (Discuss DNR or withdrawal of care, Hospice)? DNR status @ -No What co-morbidities impacted this encounter? (DM, HTN, Smoking, COPD, CAD, Cancer, CVA, ARF, Chemo, Hep., AIDS, mental health diagnosis, sleep apnea, mo rbid obesity)? @ -History of aortic valve replaced Was patient admitted / discharged? Hospital course, mention meds given and route, prescriptions, significant lab abnormalities, going to OR and other pertinent info. @ -Patient presents with transfer secondary to dyspnea, CHF and non-ST elevation [place]. Patient is improved on arrival and is stable. Patient will be admitted with cardiac consult, admission orders written. Undiagnosed new problem with uncertain prognosis? @ -No Drug Therapy requiring intensive monitoring for toxicity (Heparin, Nitro, Insulin, Cardizem)? @ -No Were any procedures done? @ -No Diagnosis/symptom? @ -CHF, non-ST elevation myocardial infarction Acute, or Chronic, or Acute on Chronic? @ -Acute, acute Uncomplicated (without systemic symptoms) or Complicated (systemic symptoms)? @ -Default Side effects of treatment? @ -No Exacerbation, Progression, or Severe Exacerbation? @ -No Poses a threat to life or bodily function? How? (Chest pain, [place], [place], pneumonia, PE, COPD, DKA, ARF, appy, cholecystitis, CVA, Diverticulitis, Homicidal, Suicidal, threat to staff... and all critical care pts) @ -Cardiac function Disposition Clinical Impression: Congestive heart failure, NSTEMI (non-ST elevated myocardial infarction) Disposition: ADMITTED IP TO THIS HOSP Condition: Serious Is patient prescribed a controlled substance at d/c from ED?: No Referrals: Ashley Navarrete MD [Primary Care Provider] - 1-2 days Time of Disposition: 13:36
[2024-08-19] MEDS: HEPARIN SOD,PORK IN 0.45% NACL 25,000 UNIT in 0.45% NACL 1 250ML.BAG IV SCH (14:00)
[2024-08-19] MEDS: ASPIRIN 325 MG TAB PO STA (14:00)
[2024-08-19] MEDS: NITROGLYCERIN OINT 1 INCH/GM PACKET TOPICAL SCH (14:00)
[2024-08-19] MEDS: FUROSEMIDE 10 MG/ML 4 ML VIAL IV SCH (14:25)
[2024-08-19 16:25] LABS: ALT 16 U/L (4-34); African American GFR (CKD) >90 (>60 ml/min/1.73 sqM); Albumin 4.5 g/dL (3.5-5.0); Anion Gap 11 mmol/L; Blood Urea Nitrogen 14 mg/dL (7-17); Calcium 10.2 mg/dL (8.4-10.2); Carbon Dioxide 27 mmol/L (22-30); Chloride 97 mmol/L (98-107); Glucose 90 mg/dL (74-99); Non-African American GFR(CKD) 86 (>60 ml/min/1.73 sqM); Sodium 135 mmol/L (137-145); Total Bilirubin 0.9 mg/dL (0.2-1.3); Total Protein 7.4 g/dL (6.3-8.2)
[2024-08-19 16:26] LABS: Basophils # (A) 0.1 k/uL (0-0.2); Basophils % (A) 0 %; Eosinophils # (A) 0.1 k/uL (0-0.7); Eosinophils % (A) 0 %; HCT 35.4 % (34.0-46.0); HGB 11.5 gm/dL (11.4-16.0); Hypochromasia Slight; Lymphocytes # (A) 2.6 k/uL (1.0-4.8); Lymphocytes % (A) 20 %; MCHC 32.4 g/dL (31.0-37.0); MCV 89.5 fL (80.0-100.0); Mean Platelet Volume 7.2; Monocytes # (A) 0.8 k/uL (0-1.0); Monocytes % (A) 7 %; Neutrophils # (A) 8.8 k/uL (1.3-7.7); Neutrophils % (A) 70 %; RBC 3.96 m/uL (3.80-5.40); RDW 13.9 % (11.5-15.5); WBC 12.6 k/uL (3.8-10.6)
[2024-08-19 16:27] LABS: Platelet Count 548 k/uL (150-450)
[2024-08-19 16:36] LABS: AST 34 U/L (14-36); Alkaline Phosphatase 85 U/L (38-126); Potassium 4.3 mmol/L (3.5-5.1)
--- NOTE | 2024-08-19 16:37 | HP ---
HISTORY AND PHYSICAL CHIEF COMPLAINT: Shortness of breath. HISTORY OF PRESENT ILLNESS: This is an 84-year-old woman with a past medical history of multiple medical problems including hypertension, hyperlipidemia, was complaining of shortness of breath. The patient went to [facility], diagnosed with CHF and acute vxk-VW-ztsijqk- elevation myocardial infarction. The patient was given Lasix. The patient felt slightly better and the patient is transferred to [facility] at this time. There is no history of any fever, rigors, or chills at this time. PAST MEDICAL HISTORY: Hypertension, hyperlipidemia. Rest of the history and rest of the chart is also reviewed. HOME MEDICATIONS: Reviewed include Tapazole, dose and rest of medications noted, not confirmed yet. ALLERGIES: Include Keflex. FAMILY HISTORY: History of breast cancer. SOCIAL HISTORY: Previous history of smoking. REVIEW OF SYSTEMS: Fourteen-point review is negative except as mentioned earlier. PHYSICAL EXAMINATION: VITAL SIGNS: Pulse is 82, blood pressure 141/70, respirations 16. HEENT: Conjunctivae normal. NECK: No JVD. CARDIOVASCULAR: S1, S2. RESPIRATIONS: A few scattered rhonchi and bibasilar crackles. ABDOMEN: Soft. LEGS: Minimal left leg edema. NERVOUS SYSTEM: Nonfocal. LABORATORY DATA: Not available. ASSESSMENT: 1. Congestive heart failure acute exacerbation. 2. Possible acute tzj-WX-fsztyte elevation myocardial infarction. 3. Hypertension. 4. Hyperlipidemia. 5. Hyperthyroidism. RECOMMENDATIONS AND DISCUSSION: This is an 84-year-old woman who presented with multiple complex medical issues, we will monitor the patient closely. Continue with IV Lasix. Cardiology consultation. I would also recommend 2D echo with Doppler. Resume the home medications. Repeat labs. Guarded prognosis. Further recommendations to follow. See orders for further details. We will repeat troponin also as well as EKG. MMODL / IJN: [id number] /
[2024-08-19] MEDS: PANTOPRAZOLE 40 MG TABLET PO SCH (16:58)
--- NOTE | 2024-08-19 17:28 | XR ---
EXAMINATION TYPE: XR chest 1V portable DATE OF EXAM: 08/19/2024 COMPARISON: 08/12/2024 INDICATION: CHF TECHNIQUE: Single frontal view of the chest is obtained. FINDINGS: The heart size is highly prominent. Aortic valve and a aortic stent evident The pulmonary vasculature is normal. The lungs are clear. IMPRESSION: 1. No acute pulmonary process. [facility], , 08/19/2024 5:26 PM
[2024-08-19] MEDS: HEPARIN SODIUM 1,000 UN/ML (10ML VL) IV PRN (20:41)
[2024-08-20 03:28] LABS: Basophils # (A) 0.1 k/uL (0-0.2); Basophils % (A) 1 %; Eosinophils # (A) 0.1 k/uL (0-0.7); Eosinophils % (A) 1 %; HGB 11.1 gm/dL (11.4-16.0); Lymphocytes # (A) 2.9 k/uL (1.0-4.8); Lymphocytes % (A) 26 %; MCH 28.7 pg (25.0-35.0); MCHC 32.8 g/dL (31.0-37.0); MCV 87.7 fL (80.0-100.0); Mean Platelet Volume 7.4; Monocytes # (A) 0.6 k/uL (0-1.0); Monocytes % (A) 6 %; Neutrophils # (A) 7.3 k/uL (1.3-7.7); Neutrophils % (A) 65 %; Platelet Count 471 k/uL (150-450); RBC 3.88 m/uL (3.80-5.40); RDW 14.2 % (11.5-15.5); WBC 11.2 k/uL (3.8-10.6)
[2024-08-20 03:59] LABS: INR 1.2 (<1.2); Prothrombin Time 12.5 sec (10.0-12.5)
[2024-08-20] MEDS: ASPIRIN 325 MG TAB PO SCH (08:41)
[2024-08-20 11:58] VITALS: BMI 31.7
[2024-08-20] MEDS: LOSARTAN 50 MG TAB PO SCH (12:33)
--- NOTE | 2024-08-20 13:16 | P.CRDCN ---
History of Present Illness Consult date: 08/20/24 Consult reason: congestive heart failure History of present illness: This is Charlie Tariq NP, I'm dictating on behalf of Dr. Dowell's H&P and A&P The patient was interviewed and examined. HPI: Patient is a pleasant 84-year-old female, patient of Dr. Steele, with a past medical history that includes skin cancer, hyperlipidemia, hypertension, hypothyroidism, recent aortic valve replacement approximately 1 week ago who presents to the hospital with complaints of shortness of breath. Patient reports that approximately 2 nights ago she started experiencing trouble breathing. She reports that she had to sit up in bed in order to feel like she could catch her breath. She states that this sensation was that she could not take a full satisfying deep breath. She states that this progressed in severity until she presented to an outside hospital for evaluation. At the outside hospital the patient had an evaluation and it was determined that she had congestive heart failure with a non-ST elevated AL. She was transferred here to [facility] for further evaluation. In the emergency department the patient was evaluated with an EKG which showed sinus bradycardia with sinus arrhythmia, no significant abnormalities consistent with acute coronary syndrome. Patient had labs completed, and demonstrated troponin of 0.23, 0.28, and 0.52. Chest x-ray was negative for acute process. By the time the patient arrived at the ER the patient's symptoms were improved. She was given Lasix. Cardiology was consulted secondary to the possible congestive heart failure as well as the elevated troponins. ROS: [No fever, chills, or rigors] [no cough, phlegm, or expectoration] [no nausea, vomiting, or diarrhea] [no hematuria, dysuria] [no musculoskelatal complaints] [no strokes or seizures] [no skin lesions] EXAMINATION: GENERAL: Well-appearing, well-nourished and in no acute distress. NECK: Supple without JVD or thyromegaly. LUNGS: Breath sounds diminished but clear to auscultation bilaterally. Respiration equal and unlabored. No wheezes, rales or rhonchi. HEART: Regular rate and rhythm without murmurs, rubs or gallops. S1 and S2 heard. EXTREMITIES: Normal range of motion, no edema. No clubbing or cyanosis. Peripheral pulses intact and strong. REVIEW OF LABS, ECG & MEDICAL DATA: LABS: White count 11.2, hemoglobin 11.1, platelets 471, INR 1.2, sodium 135, potassium 4.3, BUN 14, creatinine 0.58, troponin-0.230, 0.281, 0.524 EKG: Sinus bradycardia with sinus arrhythmia IMAGING: Chest x-ray dated 08/19/2024 demonstrates no acute pulmonary process. VITALS: Temp 97.6, pulse 81, blood pressure 119/51, O2 saturation 91% on room air IMPRESSION: 1. Acute exacerbation of congestive heart failure 2. Elevated troponins, recent TAVR 1 week ago 3. Hypertension 4. Hyperlipidemia PLAN: Decrease Lasix to 40 mg IV push daily. Stop heparin drip. Resume losartan 50 mg daily. Hold metoprolol for now. Troponin elevation is likely secondary to the TAVR completed 1 week ago. Doubt acute coronary syndrome. Further recommendations based on patient's clinical course. Thank you for the consult and allowing us to participate in the care of this patient. Past Medical History Past Medical History: Cancer, Hyperlipidemia, Hypertension, Skin Disorder, Thyroid Disorder Additional Past Medical History / Comment(s): HX SKIN CANCER DX, "indigestion", "patch on scalp", hyperthyroid History of Any Multi-Drug Resistant Organisms: None Reported Past Surgical History: Tonsillectomy, Tubal Ligation Additional Past Surgical History / Comment(s): MULT SKIN CANCER LESIONS REMOVED, BILAT CATARACTS REMOVED, aortic valve replacement 08/10/24 Past Anesthesia/Blood Transfusion Reactions: No Reported Reaction Additional Past Anesthesia/Blood Transfusion Reaction / Comment(s): no hx blood transfusion Past Psychological History: No Psychological Hx Reported Smoking Status: Former smoker Past Alcohol Use History: None Reported Additional Past Alcohol Use History / Comment(s): smoked from teens to early 20's Past Drug Use History: None Reported - Past Family History Mother Family Medical History: Cancer Additional Family Medical History / Comment(s): breast cancer,heart problems Father Family Medical History: Cancer Additional Family Medical History / Comment(s): skin CA,heart problems Medications and Allergies Home Medications Medication Instructions Recorded Confirmed Type Aspirin 81 mg PO HS 06/15/14 08/19/24 History Atorvastatin [Lipitor] 10 mg PO HS 06/15/14 08/19/24 History gemfibroziL [Lopid] 600 mg PO QA 06/15/14 08/19/24 History Albuterol Inhaler [Ventolin Hfa 2 puff INHALATION RT-Q6H PRN 08/24/20 08/19/24 History Inhaler] Calcium Carbonate [Calcium] 600 mg PO DAILY 08/24/20 08/19/24 History [place]-3 Fatty Acids/Fish Oil [Fish 1 cap PO DAILY 08/24/20 08/19/24 History Oil 1,000 mg Softgel] methIMAzole [Tapazole] 2.5 mg PO HS 08/24/20 08/19/24 History Vit C/E/Zn/Coppr/Lutein/Zeaxan 1 cap PO BID 07/22/21 08/19/24 History [Preservision Areds 2 Softgel] Azithromycin [Zithromax Z Pack] See Taper PO DIRECTED 08/19/24 08/19/24 History Metoprolol Tartrate [Lopressor] 25 mg PO BID 08/19/24 08/19/24 History predniSONE [Deltasone] 20 mg PO DAILY 08/19/24 08/19/24 History Allergies Allergy/AdvReac Type Severity Reaction Status Date / Time cephalexin monohydrate Allergy Rash/Hives Verified 08/19/24 15:31 [From Keflex] Sulfa (Sulfonamide Allergy Rash/Hives Verified 08/19/24 15:31 Antibiotics) Physical Exam Vitals: Vital Signs Temp Pulse Pulse Pulse Resp BP BP 08/20/24 12:00 79 119/75 08/20/24 08:00 97.6 F 81 81 16 119/51 08/20/24 05:00 98.2 F 67 16 126/70 08/20/24 01:54 67 08/19/24 23:10 97.9 F 60 16 135/70 08/19/24 21:55 74 08/19/24 21:12 97.7 F 78 16 131/72 08/19/24 20:03 98.1 F 65 16 100/41 08/19/24 20:00 62 20 138/71 08/19/24 16:01 97.6 F 65 18 146/71 08/19/24 13:22 99.3 F 82 16 141/70 Pulse Ox 08/20/24 12:00 100 08/20/24 08:00 91 L 08/20/24 05:00 95 08/20/24 01:54 08/19/24 23:10 95 08/19/24 21:55 08/19/24 21:12 94 L 08/19/24 20:03 97 08/19/24 20:00 95 08/19/24 16:01 95 08/19/24 13:22 96 Intake and Output 08/19/24 08/20/24 08/20/24 22:59 06:59 14:59 Intake Total 611.995 240 Output Total 800 900 Balance 611.995 -800 -660 Intake: IV 10 Invasive Line 2 10 Intake, IV Titration 61.995 Amount Heparin Sod,Pork in 0.45% 61.995 NaCl 25,000 unit In 0.45 % NaCl 1 250ml.bag @ 12 UNITS/KG/HR 9.253 mls/hr IV .Q24H [facility] Rx#: [id number] Oral 540 240 Output: Urine 800 900 Other: Voiding Method Toilet Toilet Toilet Diaper Diaper Diaper # Voids 1 Weight 77.111 kg 73.7 kg 73.7 kg Results 08/20/24 02:31 08/19/24 15:30 Cardiac Enzymes 08/19/24 08/19/24 08/19/24 Range/Units 14:22 15:30 15:30 AST 34 (14-36) U/L Troponin I 0.230 H* 0.281 H* (0.000-0.034) ng/mL 08/19/24 Range/Units 19:40 AST (14-36) U/L Troponin I 0.524 H* (0.000-0.034) ng/mL Coagulation 08/19/24 08/20/24 08/20/24 Range/Units 19:40 02:31 02:31 PT 12.5 (10.0-12.5) sec APTT 39.5 H 61.7 H (22.0-30.0) sec CBC 08/19/24 08/20/24 Range/Units 15:30 02:31 WBC 12.6 H 11.2 H (3.8-10.6) k/uL RBC 3.96 3.88 (3.80-5.40) m/uL Hgb 11.5 11.1 L (11.4-16.0) gm/dL Hct 35.4 34.0 (34.0-46.0) % Plt Count 548 H D 471 H (150-450) k/uL Comprehensive Metabolic Panel 08/19/24 Range/Units 15:30 Sodium 135 L (137-145) mmol/L Potassium 4.3 (3.5-5.1) mmol/L Chloride 97 L (98-107) mmol/L Carbon Dioxide 27 (22-30) mmol/L BUN 14 (7-17) mg/dL Creatinine 0.58 (0.52-1.04) mg/dL Glucose 90 (74-99) mg/dL Calcium 10.2 (8.4-10.2) mg/dL AST 34 (14-36) U/L ALT 16 (4-34) U/L Alkaline Phosphatase 85 (38-126) U/L Total Protein 7.4 (6.3-8.2) g/dL Albumin 4.5 (3.5-5.0) g/dL Current Medications Generic Name Dose Route Start Last Admin Trade Name Joshq PRN Reason Stop Dose Admin Aspirin 325 mg 08/20/24 09:00 08/20/24 08:41 Aspirin 325 Mg Tab PO 325 mg DAILY TIM Administration Furosemide 40 mg 08/21/24 09:00 Furosemide 10 Mg/Ml 4 Ml Vial IV DAILY [facility] Heparin Sodium (Porcine) 0 unit 08/19/24 13:38 08/19/24 20:41 Heparin Sodium 1,000 Un/Ml (10ml Vl) IV 1,925 unit PER PROTOCOL PRN Administration Low PTT Protocol Losartan Potassium 50 mg 08/20/24 10:00 08/20/24 12:33 Losartan 50 Mg Tab PO 50 mg DAILY TIM Administration Nitroglycerin 1 inch 08/19/24 13:45 08/20/24 12:33 Nitroglycerin Oint 1 Inch/Gm Packet TOPICAL 08/20/24 13:44 1 inch Q6HR TIM Administration Pantoprazole Sodium 40 mg 08/19/24 15:15 08/20/24 06:37 Pantoprazole 40 Mg Tablet PO 40 mg [id number] TIM Administration Intake and Output 08/19/24 08/20/24 08/20/24 22:59 06:59 14:59 Intake Total 611.995 240 Output Total 800 900 Balance 611.995 -800 -660 Intake: IV 10 Invasive Line 2 10 Intake, IV Titration 61.995 Amount Heparin Sod,Pork in 0.45% 61.995 NaCl 25,000 unit In 0.45 % NaCl 1 250ml.bag @ 12 UNITS/KG/HR 9.253 mls/hr IV .Q24H [facility] Rx#: [id number] Oral 540 240 Output: Urine 800 900 Other: Voiding Method Toilet Toilet Toilet Diaper Diaper Diaper # Voids 1 Weight 77.111 kg 73.7 kg 73.7 kg Patient Weight 08/21/24 06:59 Weight 73.7 kg 08/20/24 02:31 08/19/24 15:30
[2024-08-20] MEDS ORDERED: ALBUTEROL HFA INHALER INHALATION PRN (14:09)
[2024-08-20] MEDS ORDERED: NON FORMULARY DRUG (Gemfibrozil 600 MG Tab) PO SCH (14:15)
[2024-08-20] MEDS ORDERED: NON FORMULARY DRUG (Omega-3 Fatty Acids/Fish Oil [Fish Oil 1,000 Mg Softgel] 1 EACH Capsul PO SCH (14:15)
[2024-08-20] MEDS: predniSONE 20 MG TAB PO SCH (17:33)
[2024-08-20] MEDS: ATORVASTATIN 10 MG TAB PO SCH (20:45)
[2024-08-20] MEDS ORDERED: METOPROLOL TARTRATE 25 MG TAB PO SCH (21:00)
[2024-08-20] MEDS: VIT A,C & E-LUTEIN-MINERALS 1 EACH TAB PO SCH (21:40)
[2024-08-20] MEDS: methIMAzole 5 MG TAB PO SCH (21:40)
--- NOTE | 2024-08-20 22:46 | PN ---
PROGRESS NOTE DATE OF SERVICE: 08/20/2024 SUBJECTIVE: This is an 84-year-old woman, who was admitted with CHF acute exacerbation, also had elevated troponin. Cardiology following the patient closely. No chest pain. No palpitations. No fever. OBJECTIVE: VITAL SIGNS: Pulse is 81, blood pressure 119/51, respirations 16. CHEST: A few scattered rhonchi. ABDOMEN: Soft. CARDIOVASCULAR: Ejection systolic murmur. LABORATORY DATA: WBC 11.2. Other labs are noted. Troponin 0.524. ASSESSMENT: 1. Congestive heart failure acute exacerbation. 2. Possible acute kcy-JZ-xcoyhno elevation myocardial infarction with troponin 0.524. 3. Transcatheter aortic valve replacement. 4. Hypertension. 5. Hyperlipidemia. 6. Hyperthyroidism history. RECOMMENDATIONS AND DISCUSSION: Recommend to continue current management and continue symptomatic treatment. Otherwise, continue with diuretics. Closely follow with Cardiology. Resume the home medications. Further recommendations to follow. Guarded prognosis. MMODL / IJN: [id number] /
[2024-08-21] MEDS: CALCIUM CARBONATE 500 MG CHEWABLE PO SCH (08:49)
[2024-08-21] MEDS: FUROSEMIDE 10 MG/ML 4 ML VIAL IV SCH (08:49)
[2024-08-21] MEDS: METOPROLOL TARTRATE 12.5 MG TAB PO SCH (12:51)
--- NOTE | 2024-08-21 12:54 | P.PN ---
Subjective Progress Note Date: 08/21/24 The patient is an 84-year-old female who presented to the hospital with worsening shortness of breath. The patient underwent TAVR procedure last week. She was found to be in congestive heart failure as well as to have mildly elevated troponins. She has been diuresed over the last 24 hours and her home m edications have been resumed. Initially the patient had bradycardia on arrival therefore metoprolol was initially held. Patient interviewed and examined sitting up in the recliner chair. She states she has had complete resolution in her symptoms. No chest pain or pressure. No difficulty breathing. She has been up ambulating around her room. GENERAL: Well-appearing, well-nourished and in no acute distress. NECK: Supple without JVD or thyromegaly. LUNGS: Breath sounds clear to auscultation bilaterally. Respiration equal and unlabored. No wheezes, rales or rhonchi. HEART: Regular rate and rhythm without murmurs, rubs or gallops. S1 and S2 heard. EXTREMITIES: Normal range of motion, no edema. No clubbing or cyanosis. Peripheral pulses intact and strong. TELEMETRY: Sinus rhythm overnight. No episodes of AV block or sinus pauses. IMPRESSION: Acute exacerbation of congestive heart failure Elevated troponins, recent TAVR 1 week ago Sinus bradycardia Hypertension Hyperlipidemia PLAN: Resume low-dose beta-kaela Reduce aspirin to 81 mg Patient may be discharged with outpatient follow-up with primary crocheter hand Dr. Steele I am dictating on behalf of Dr Anders Dowell's history/physical and assessment/plan. Objective - Vital Signs Vital signs: Vital Signs Temp 98.1 F 08/21/24 08:00 Pulse 78 08/21/24 08:00 Resp 16 08/21/24 08:00 BP 127/80 08/21/24 08:00 Pulse Ox 95 08/21/24 08:00 FiO2 Intake & Output 08/20/24 08/21/24 08/21/24 18:59 06:59 18:59 Intake Total 600 20 250 Output Total 900 600 Balance -300 -580 250 Weight 73.7 kg 73.7 kg Intake: IV 20 Invasive Line 1 10 Invasive Line 2 10 Oral 600 250 Output: Urine 900 600 Other: Voiding Method Toilet Toilet Toilet Diaper Diaper Diaper # Voids 1 - Labs CBC & Chem 7: 08/20/24 02:31 08/19/24 15:30
--- NOTE | 2024-08-21 23:28 | PN ---
PROGRESS NOTE DATE OF SERVICE: 08/21/2024 SUBJECTIVE: This is an 84-year-old woman, who was admitted with CHF exacerbation, also has elevated troponin. No chest pain. No palpitations. The patient recently had a TAVR. OBJECTIVE: VITAL SIGNS: Pulse is 90, blood pressure 119/64, respirations 16. CHEST: Clear to auscultation. ABDOMEN: Soft. LABORATORY DATA: Reviewed. ASSESSMENT: 1. Congestive heart failure with acute exacerbation. 2. Elevated troponin, possibly secondary to recent transcatheter aortic valve replacement per Cardiology. 3. Hypertension. 4. Hyperlipidemia. 5. Hyperthyroidism. RECOMMENDATIONS: I recommend to continue current management and continue symptomatic treatment. Otherwise, I would recommend repeat laboratories. Closely follow with Cardiology. Increase ambulation. Further recommendations to follow. Possible discharge in the next 24 hours. MMODL / IJN: [id number] /
[2024-08-22 07:41] LABS: Basophils % (A) 0 %; Eosinophils % (A) 0 %; HCT 36.8 % (34.0-46.0); HGB 11.7 gm/dL (11.4-16.0); Hypochromasia Slight; Lymphocytes # (A) 2.1 k/uL (1.0-4.8); Lymphocytes % (A) 17 %; MCH 27.7 pg (25.0-35.0); MCHC 31.8 g/dL (31.0-37.0); MCV 87.2 fL (80.0-100.0); Mean Platelet Volume 6.8; Monocytes # (A) 0.7 k/uL (0-1.0); Monocytes % (A) 6 %; Neutrophils # (A) 9.3 k/uL (1.3-7.7); Neutrophils % (A) 75 %; Platelet Count 464 k/uL (150-450); RBC 4.22 m/uL (3.80-5.40); RDW 13.7 % (11.5-15.5); WBC 12.3 k/uL (3.8-10.6)
[2024-08-22] MEDS: FUROSEMIDE 40 MG TAB PO SCH (08:26)
[2024-08-22 08:37] VITALS: RESP 20; TEMP 97.9
--- NOTE | 2024-08-22 09:50 | CDI ---
Documentation Clarification Form Date: 08/22/2024 09:16:40 AM From: Joan Cain RN CCDS Phone: [phone] Admit Date: 08/19/2024 01:39:00 PM Patient Name: Aleena Mclain Visit Number: [id number] Discharge Date: ATTENTION: The Clinical Documentation Specialists (CDI) and [facility] Coding Staff appreciate your assistance in clarifying documentation. Please respond to the clarification below the line at the bottom and electronically sign. The CDI & [facility] Coding staff will review the response and follow-up if needed. Please note: Queries are made part of the Legal Health Record. If you have any questions, please contact the author of this message via ITS. Provider: Abigail Banks NP Your patient has the documented diagnosis of unspecified CHF 08/21, Cardiology note. Additional information regarding the type of CHF is requested. History/Risk Factors: 84 year old female presents to the ED as a transfer from [facility] for CHF and acute nstemi. Medical History: Recent TAVR, CHF, HTN, HLD and Hyperthyroidism. 08/19, Clinical Indicators: VS/Pulse OX: B/P 141/70; HR 82; 99.3F Oral; RR 16; SpO2 96% RA BMI 31.7kg Echocardiogram Results, 08/11/2024: 60-65% EF, Moderate LVH, Mild paravalvular leak involving bio prosthetic valve in aortic position. Chest X Ray: 08/19 No acute pulmonary process Treatment: 08/19 08/20 Lasix IV Q8H TIM; 08/21 Lasix IV daily; 08/22 Lasix Po daily; 08/21 Lopressor po bid In your professional opinion, can you please clarify the type of CHF if known? [x ] Acute Diastolic Heart Failure (preserved EF) [ ] Other, please specify [ ] Unable to determine (Template Last Revised: December 2020) MTDD
[2024-08-22 09:57] LABS: African American GFR (CKD) >90 (>60 ml/min/1.73 sqM); Anion Gap 15 mmol/L; Blood Urea Nitrogen 24 mg/dL (7-17); Calcium 9.5 mg/dL (8.4-10.2); Carbon Dioxide 27 mmol/L (22-30); Chloride 91 mmol/L (98-107); Glucose 108 mg/dL (74-99); Non-African American GFR(CKD) 83 (>60 ml/min/1.73 sqM); Potassium 3.8 mmol/L (3.5-5.1); Sodium 133 mmol/L (137-145)
[2024-08-22 11:14] VITALS: BP 117/65; PULSE 56
--- NOTE | 2024-08-22 12:02 | P.PN ---
Subjective Progress Note Date: 08/22/24 The patient is an 84-year-old female who presented to the hospital with worsening shortness of breath. The patient underwent TAVR procedure last week. She was found to be in congestive heart failure as well as to have mildly elevated troponins. She has been diuresed over the last 24 hours and her home m edications have been resumed. Initially the patient had bradycardia on arrival therefore metoprolol was initially held. Patient interviewed and examined resting in bed. She states she has had compl ete resolution in her symptoms. No chest pain or pressure. No difficulty breathing. She has been up ambulating around her room. Patient was cleared for discharge as of yesterday. We were requested to reassess patient regarding a stress test that she has on Thursday to see if this could be done during the hospitalization. Patient is scheduled for a low-level stress test which will evaluate her and prepare her for cardiac rehab. GENERAL: Well-appearing, well-nourished and in no acute distress. NECK: Supple without JVD or thyromegaly. LUNGS: Breath sounds clear to auscultation bilaterally. Respiration equal and unlabored. No wheezes, rales or rhonchi. HEART: Regular rate and rhythm without murmurs, rubs or gallops. S1 and S2 heard. EXTREMITIES: Normal range of motion, no edema. No clubbing or cyanosis. Peripheral pulses intact and strong. TELEMETRY: Sinus rhythm overnight. No episodes of AV block or sinus pauses. IMPRESSION: Acute exacerbation of congestive heart failure Elevated troponins, recent TAVR 1 week ago Sinus bradycardia Hypertension Hyperlipidemia PLAN: Continue l Lopressor and increase to 25 mg twice daily Add Lasix 20 mg daily for 7 days Continue aspirin to 81 mg Regarding low-level stress test scheduled for Thursday, this will be rescheduled after patient is seen by Dr. Steele in the office. Patient may be discharged with outpatient follow-up with primary braid maker Dr. Steele within the week. Nurse practitioner note has been reviewed, I agree with documented findings and plan of care. Patient was seen and examined. Objective - Vital Signs Vital signs: Vital Signs Temp 97.9 F 08/22/24 08:21 Pulse 93 08/22/24 08:21 Resp 20 08/22/24 08:21 BP 147/58 08/22/24 08:21 Pulse Ox 98 08/22/24 08:21 FiO2 Intake & Output 08/21/24 08/22/24 08/22/24 18:59 06:59 18:59 Intake Total 750 Output Total 900 450 Balance -150 -450 Weight 73.7 kg Intake: Oral 750 Output: Urine 900 450 Other: Voiding Method Toilet Toilet Toilet Diaper Diaper - Labs CBC & Chem 7: 08/22/24 06:39 08/22/24 06:39 Labs: Abnormal Lab Results - Last 24 Hours (Table) 08/22/24 08/22/24 Range/Units 06:39 06:39 WBC 12.3 H (3.8-10.6) k/uL Plt Count 464 H (150-450) k/uL Neutrophils # 9.3 H (1.3-7.7) k/uL Sodium 133 L (137-145) mmol/L Chloride 91 L (98-107) mmol/L BUN 24 H (7-17) mg/dL Glucose 108 H (74-99) mg/dL
[2024-08-22] MEDS ORDERED: METOPROLOL TARTRATE 25 MG TAB PO SCH (21:00)
[2024-08-23] MEDS ORDERED: FUROSEMIDE 20 MG TAB PO SCH (09:00)
--- NOTE | 2024-08-23 10:12 | P.DS ---
Providers Date of admission: 08/19/24 13:39 Expected date of discharge: 08/22/24 Attending physician: Raymond Lazaro MD Consults: 08/19/24 13:36 Consult Physician Routine Consulting Provider: Michael Beauchamp Consult Reason/Comments: nstemi,chf Do you want consulting provider notified?: Yes 08/22/24 09:14 Consult Physician Urgent Consulting Provider: Michael Beauchamp Consult Reason/Comments: needs stress, sched for thu but unable to get a ride here Do you want consulting provider notified?: Yes Primary care physician: Ashley Navarrete Hospital Course: Final diagnosis Congestive heart failure with acute exacerbation Elevated troponin, secondary to recent TAVR per cardiology Hypertension history Hyperlipidemia Obesity with a BMI 31.7 GI prophylaxis History of hypothyroidism DVT prophylaxis Full code Discharge disposition Patient is being discharged in a stable condition with guarded prognosis to home. Patient will follow-up with Dr. Navarrete in the outpatient setting upon discharge. Patient is to continue with current medications and outpatient follow-up with CT surgery as well as cardiology as scheduled. Patient does have a scheduled outpatient stress test on 08/24/2024 and may need to be rescheduled due to transportation issues. Dr. Jarvis is aware. Total time taken is greater than 35 minutes. Hospital course This is a 84-year-old female who was recently admitted with acute CHF exacerbation also elevated troponin. Patient recently had a TAVR and evaluated by CT surgery as well as cardiology it is scheduled for an outpatient stress test with Dr. Steele. Cardiology has evaluated the patient and cleared the patient for discharge home. Patient feeling well and denies chest pain and would like to go home. Please refer to other consultation notes for further HPI. Currently no reports of chest pain, shortness of breath, or palpitations. Patient is afebrile. No reports of nausea or vomiting and patient is tolerating diet. Patient will be discharged home today. Guarded prognosis given significant comorbidities Physical exam: Gen: This is a 84-year-old female who is awake, alert and oriented x 3, well- developed, elderly appearing, obese HEENT: Head is atraumatic, normocephalic. Pupils equal, round. Sclerae is anicteric. NECK: Supple. No JVD. No lymphadenopathy. No thyromegaly. LUNGS: Diminished breath sounds bilaterally otherwise clear to auscultation. No wheezes or rhonchi. No intercostal retractions. HEART: S1, S2 are muffled ABDOMEN: Soft. Bowel sounds are present. No masses. No tenderness. EXTREMITIES: No pedal edema. No calf tenderness. NEUROLOGICAL: Patient is awake, alert and oriented x3. Cranial nerves 2 through 12 are grossly intact. Please refer to medication reconciliation sheet for a list of medications. The impression and plan of care has been dictated by Abigail Banks, Nurse Practitioner as directed. Dr. Jabier MD I have performed a history and examination and MDM of this patient, discussed the same with the dictator, and agree with the dictator's assessment and plan as written ,documented as a scribe. Based on total visit time, I have performed more than 50% of the visit. Patient Condition at Discharge: Fair Plan - Discharge Summary Discharge Rx Participant: No New Discharge Prescriptions: New Furosemide [Lasix] 20 mg PO DAILY #30 tab Pantoprazole [Protonix] 40 mg PO AC-BRKFST 14 Days #14 tab Losartan [Cozaar] 50 mg PO DAILY #30 tab Continue gemfibroziL [Lopid] 600 mg PO QAM Atorvastatin [Lipitor] 10 mg PO HS Aspirin 81 mg PO HS Calcium Carbonate [Calcium] 600 mg PO DAILY [place]-3 Fatty Acids/Fish Oil [Fish Oil 1,000 mg Softgel] 1 cap PO DAILY methIMAzole [Tapazole] 2.5 mg PO HS Albuterol Inhaler [Ventolin Hfa Inhaler] 2 puff INHALATION RT-Q6H PRN PRN Reason: Dyspnea Vit C/E/Zn/Coppr/Lutein/Zeaxan [Preservision Areds 2 Softgel] 1 cap PO BID Metoprolol Tartrate [Lopressor] 25 mg PO BID predniSONE [Deltasone] 20 mg PO DAILY Discontinued Azithromycin [Zithromax Z Pack] See Taper PO DIRECTED Discharge Medication List Aspirin 81 mg PO HS 06/15/14 [History] Atorvastatin [Lipitor] 10 mg PO HS 06/15/14 [History] gemfibroziL [Lopid] 600 mg PO QAM 06/15/14 [History] Albuterol Inhaler [Ventolin Hfa Inhaler] 2 puff INHALATION RT-Q6H PRN 08/24/20 [History] Calcium Carbonate [Calcium] 600 mg PO DAILY 08/24/20 [History] [place]-3 Fatty Acids/Fish Oil [Fish Oil 1,000 mg Softgel] 1 cap PO DAILY 08/24/20 [History] methIMAzole [Tapazole] 2.5 mg PO HS 08/24/20 [History] Vit C/E/Zn/Coppr/Lutein/Zeaxan [Preservision Areds 2 Softgel] 1 cap PO BID 07/22/21 [History] Metoprolol Tartrate [Lopressor] 25 mg PO BID 08/19/24 [History] predniSONE [Deltasone] 20 mg PO DAILY 08/19/24 [History] Furosemide [Lasix] 20 mg PO DAILY #30 tab 08/22/24 [Rx] Losartan [Cozaar] 50 mg PO DAILY #30 tab 08/22/24 [Rx] Pantoprazole [Protonix] 40 mg PO AC-BRKFST 14 Days #14 tab 08/22/24 [Rx] Follow up Appointment(s)/Referral(s): Ashley Navarrete MD [Primary Care Provider] - 08/25/24 10:20 am Calvin Steele MD [STAFF PHYSICIAN] - 08/24/24 (Stress test; reschedule if needed, Dr. Steele is aware.) Patient Instructions/Handouts: Heart Attack (DC), Heart Failure (DC) Activity/Diet/Wound Care/Special Instructions: Activity limited until follow up follow up with pcp on discharge follow up with cardio as scheduled or reschedule stress test with Cedric that is for this thursday continue taking medications as prescribed Discharge Disposition: HOME SELF-CARE
== END 2024-08-22 13:26 | disposition home or self-care (01) | DRG 291 ==
LOC: EC 13:17 → 3SCARD 13:39
PROVIDERS: ADMIT Internal Medicine; ATTEND Internal Medicine
DX: I11.0 Hypertensive heart disease with heart failure (principal); I50.31 Acute diastolic (congestive) heart failure; E03.9 Hypothyroidism, unspecified; E66.9 Obesity, unspecified; Z68.31 Body mass index [BMI] 31.0-31.9, adult; E78.5 Hyperlipidemia, unspecified; Z79.82 Long term (current) use of aspirin; Z79.899 Other long term (current) drug therapy; Z85.828 Personal history of other malignant neoplasm of skin; Z87.891 Personal history of nicotine dependence; Z95.2 Presence of prosthetic heart valve
CPT/HCPCS: 71045; 80048; 80053; 84484; 85025; 85610; 85730; 93005; 96365; 96366; 96375; 99285